=== PATIENT | female | born 1990 | race Caucasian/White ===

== ENCOUNTER 2020-06-09 15:50 | Emergency (ER) | payer SELFPAY ==
--- NOTE | ~2020-06-09 | XR_ITS ---
EXAMINATION: XR hand LT min 3V DATE: 06/09/2020 16:14 INDICATION: Pain and swelling at the fourth and fifth metacarpals after punching a board. TECHNIQUE: Posteroanterior, oblique and lateral views of the left hand were obtained. COMPARISON: None. FINDINGS: Oblique distal diaphyseal fracture of the left fifth metacarpal which is nondisplaced along its valentino r margin with 35 degree palmar/radial angulation. No other fractures identified. Alignment and joint spaces are normal throughout the remainder of the left hand. IMPRESSION: 1. 35 degrees palmar radial angulation of a distal diaphyseal boxer's fracture of the left fifth ca rpal. Reviewed, dictated and finalized at location . VERY MGR IMPRESSION: 1. 35 degrees palmar radial angulation of a distal diaphyseal boxer's fracture of the left fifth carpal.
[2020-06-09 15:52] VITALS: BP 141/92; PULSE 104; RESP 16; TEMP 36.3; O2SAT 98
[2020-06-09] MEDS: HYDROcodone/acetaminophen (*CRX) 7.5-325 MG TABLET 1 TAB PO (16:20)
--- NOTE | 2020-06-09 16:42 | ED.GENADULT ---
HPI - General Adult General Chief complaint: Extremity Injury, Upper Stated complaint: broke my hand Time Seen by Provider: 06/09/20 15:59 Source: patient and family Mode of arrival: ambulatory Limitations: no limitations History of Present Illness HPI narrative: Patient is a 29-year-old female who presents to emergency department for evaluation of left hand injury noting that she punched a board just prior to arrival trying to demonstrate that she could punch a board and split it in half patient presents with swelling and tenderness of the left hand worse with activity and movement Related Data Home Medications Medication Instructions Recorded Confirmed labetalol 06/09/20 lisinopril 06/09/20 06/09/20 Allergies Allergy/AdvReac Type Severity Reaction Status Date / Time No Known Allergies Allergy Verified 06/09/20 15:52 Review of Systems Review of Systems: All systems reviewed & are unremarkable except as noted in HPI and below PMFSH Social History Social History Gender identity (if verbalized by the patient): Female Exam Narrative: Exam Narrative: GENERAL: Well-appearing, well-nourished, and in no acute distress. HEAD: Normocephalic, atraumatic. EYES: PERRLA and EOMI. ENT: Nares clear, no rhinorrhea or epistaxis. Mucous membranes moist. EXTREMITIES: Bruising swelling tenderness over the left fourth and fifth MCP joints with tenderness along the fifth metacarpal SKIN: Warm, dry, no rash. NEURO: No focal deficits. Alert and oriented x3. Neurovascularly intact. Capillary refill less than 2 seconds PSYCH: Normal mood and affect. Course Course Emergency Course: Patient in the room in no distress aware of case findings treatment plan and diagnosis Consultations Consultation #1: Discussed case with hand surgery who will follow patient in clinic Date: 06/09/20 Time: 16:49 Vital Signs Vital signs: Vital Signs Temperature 97.3 F L 06/09/20 15:52 Pulse Rate 104 H 06/09/20 15:52 Respiratory Rate 16 06/09/20 15:52 Blood Pressure 141/92 H 06/09/20 15:52 Pulse Oximetry 98 06/09/20 15:52 Temperature 97.3 F L 06/09/20 15:52 Pulse Rate 104 H 06/09/20 15:52 Respiratory Rate 16 06/09/20 15:52 Blood Pressure 141/92 H 06/09/20 15:52 Pulse Oximetry 98 06/09/20 15:52 Medical Decision Making MDM Narrative Medical decision making narrative: Patients injury or pain is consistent with musculoskeletal etiology. No signs of neurological or vascular compromise on exam. Compartments and tisues are soft without signs of compartment syndrome. Pain is felt appropriate for further evaluation on an outpatient basis. Vital Signs Vital Signs: Vital Signs Temperature 97.3 F L 06/09/20 15:52 Pulse Rate 104 H 06/09/20 15:52 Respiratory Rate 16 06/09/20 15:52 Blood Pressure 141/92 H 06/09/20 15:52 Pulse Oximetry 98 06/09/20 15:52 Temperature 97.3 F L 06/09/20 15:52 Pulse Rate 104 H 06/09/20 15:52 Respiratory Rate 16 06/09/20 15:52 Blood Pressure 141/92 H 06/09/20 15:52 Pulse Oximetry 98 06/09/20 15:52 Discharge Plan Discharge Clinical Impression: Closed fracture of left hand Patient Disposition: Home, Self-Care Condition: Stable Instructions: Antibiotic Form, Hand Fracture (ED) Additional Instructions: Follow-up with hand surgery first thing on Saturday to set up for reevaluation Wear splint with rest ice and elevation Follow patient education sheets Return if symptoms worsen or concerns Prescriptions: No Action lisinopril 20 mg tablet RF: 0 labetalol 100 mg tablet RF: 0 Follow-up/Referrals: Horacio Terry MD [Physician] - Stand Alone Forms: Work/School Release IP
== END 2020-06-09 17:14 | disposition home or self-care (01) ==
PROVIDERS: Emergency Provider Emergency Medicine; PCP Emergency Medicine
DX: S62.397A Other fracture of fifth metacarpal bone, left hand, initial encounter for closed fracture (principal); W22.8XXA Striking against or struck by other objects, initial encounter
CPT/HCPCS: 29125; 73130; 99284; A4565; A9270

== ENCOUNTER 2020-06-18 01:13 | Outpatient (CLI) | payer BC, SELFPAY ==
[2020-06-18 18:32] LABS: SARS-CoV-2 RNA PCR Negative
== END 2020-06-18 01:14 | disposition home or self-care (01) ==
LOC: ANHCOVIDDT 01:13
PROVIDERS: PCP Emergency Medicine; Visit Provider Plastic Surgery
DX: Z01.812 Encounter for preprocedural laboratory examination (principal); Z20.828 Contact with and (suspected) exposure to other viral communicable diseases
CPT/HCPCS: 87635; C9803; U0003

== ENCOUNTER 2020-06-21 09:11 | Outpatient (CLI) | payer BC, SELFPAY ==
--- NOTE | 2020-06-21 09:12 | ECG_ITS ---
Measurements Intervals P[place]ps Rate: 81 P: 12 WY: 159 QRS: 72 QRSD: 102 T: 56 QT: 344 QTc: 400 Interpretive Statements SINUS RHYTHM NORMAL ECG Electronically Signed On 06-21-2020 9:27:26 ROPE MACHINE SETTER by Mj Reddy D.O.
== END 2020-06-21 09:12 | disposition home or self-care (01) ==
LOC: ANHSURGERY 09:12
PROVIDERS: PCP Nurse Practitioner Adult Health; Visit Provider Plastic Surgery
DX: I10 Essential (primary) hypertension (principal); Z01.818 Encounter for other preprocedural examination
CPT/HCPCS: 93005

== ENCOUNTER 2020-06-22 02:19 | Day surgery (SDC) | payer BC, SELFPAY ==
[2020-06-20 09:05] VITALS: BMI 30.2
--- NOTE | ~2020-06-22 | XR_ITS ---
EXAMINATION: XR surgery orthopedic DATE: 06/22/2020 16:40 INDICATION: ORIF left fifth metacarpal fracture TECHNIQUE: 3 fluoroscopic spot images of the left fifth metacarpal were obtained during procedure per formed by Dr. Terry. Radiologist was not present for the imaging or procedure. The amount of fluorosc opy time used during this procedure was 1.0 minutes. COMPARISON: 06/09/2020 FINDINGS: Interval reduction to near-anatomic alignment of the previous noted oblique fracture of the distal di aphysis of the left fifth metacarpal. There is less than one cortical width residual palmar displacem ent with negligible volar angulation. The fracture is fixed with an antegrade intramedullary pin whic h is anchored at the base of the metacarpal. No other fractures identified. Visualized joint spaces a re normal. IMPRESSION: 1. Near-anatomic alignment post open reduction and internal fixation of a distal diaphyseal fracture of the left fifth metacarpal. See procedure note for further detail. Reviewed, dictated and finalized at location A. RNAL CORROSION SPECIALIST IMPRESSION: 1. Near-anatomic alignment post open reduction and internal fixation of a dista l diaphyseal fracture of the left fifth metacarpal. See procedure note for furt her detail.
--- NOTE | 2020-06-22 07:27 | WPDHPUPDATE1 ---
History and Physical Update Update Date/Time: 06/22/20 07:27 History and Physical has been reviewed, including an updated exam of the patient. There are NO changes in the patient's condition. Risks, benefits, and alternatives have been discussed and questions answered. Patient agrees to proceed with procedure.
--- NOTE | 2020-06-22 07:29 | WPDHPUPDATE1 ---
History and Physical Update Update Date/Time: 06/22/20 07:29 History and Physical has been reviewed, including an updated exam of the patient. There are NO changes in the patient's condition. Risks, benefits, and alternatives have been discussed and questions answered. Patient agrees to proceed with procedure.
[2020-06-22 14:07] VITALS: BP 141/83; PULSE 82; RESP 14; TEMP 36.9; O2SAT 99
--- NOTE | 2020-06-22 14:29 | P.PNAN_ITS ---
Anes - Initial Pre Proc Eval Procedure: Operation Date: 06/22/20 14:15 Proposed Procedures p Open Reduction Internal Fixation Left Fifth Metacarpal - Horacio Terry MD Date/Time: 06/22/20 14:29 Surgeon: Horacio Terry MD Pre Op Diagnosis: Left Fifth Metacarpal Fracture Patient Data Age: 29 Gender: F Height: 5 ft 2 in Weight: 72.1 kg Allergies Allergy/AdvReac Type Severity Reaction Status Date / Time hydrocodone AdvReac Severe Nausea and Verified 06/22/20 14:08 Vomiting Home Medications Medication Instructions Recorded Confirmed Type labetalol 100 mg PO BID 06/09/20 06/22/20 History lisinopril 20 mg PO QAM 06/09/20 06/22/20 History tramadol 50 mg PO PRN PRN 06/20/20 06/22/20 History Patient hx anesthesia problems: none Family hx anesthesia problems: none PMFSH Past Medical History Medical History (Updated 06/22/20 @ 14:29 by Sergey Brito MD) HTN (hypertension) Overweight Surgical History Surgical History (Updated 06/22/20 @ 14:29 by Sergey Brito MD) H/O arthroscopic knee surgery Social History Social History Smoking status: Never smoker Living arrangements: with family Gender identity (if verbalized by the patient): Female Spiritual care concerns: No Anes - Eval Final PreProcedure Day of Procedure 06/22/20 14:29 Patient weight: overweight Heart: regular rate and rhythm Lungs: clear to auscultation Airway: Mallampati scale class II Neurological: alert and oriented Last oral intake: >/= 8 hours ASA classification: II Emergent: no Anesthetic plan: proceed Anesthesia type and monitoring: general LMA and standard monitoring Informed Consent: The patient's anesthetic plan and its attendant risks and bene fits were discussed with the patient/family/POA. Questions were solicited and answers provided to the satisfaction of the patient/family/POA.
[2020-06-22] MEDS: LACTATED RINGERS 1,000 ML 30 ML IV CONT (14:43)
[2020-06-22] MEDS: ceFAZolin 2 GM/D5W 50 ML 2 GM/50 ML BAG IVPB (15:44)
[2020-06-22] MEDS: LIDO 1%/EPINEPHRINE 1:100,000 20 ML VIAL 5 ML INFILTRATE (15:51)
[2020-06-22] MEDS: KETOROLAC 30 MG/ML VIAL (*BKC) IV PUSH (16:30)
--- NOTE | 2020-06-22 16:54 | PM.OP ---
Procedure Note - Brief Procedure Note - Brief Date of procedure: 06/23/20 Pre-op diagnosis: Left Fifth Metacarpal Fracture Post-op diagnosis: same Procedure performed: Closed reduction and fixation with BioMet IM davide. Anesthesia: GLMA Surgeon: Horacio Terry MD Ship Painter Helper: Elijah Estimated blood loss (mL): 1 Tourniquet time (min): 25 Drains: No Packing: No Pathology: none sent Complications: No immediate complications Condition: stable Disposition: same day
[2020-06-22 17:01] VITALS: BP 112/65; PULSE 85; RESP 16; O2SAT 100
[2020-06-22 17:31] VITALS: BP 132/77; PULSE 72; RESP 16; O2SAT 100
--- NOTE | 2020-06-22 19:49 | PM.PROC ---
Procedure Note - Detailed Date of procedure: 06/23/20 Pre-op diagnosis: Left Fifth Metacarpal Fracture Post-op diagnosis: same Procedure performed: Closed reduction and intramedullary davide fixation of the left 5th metacarpal angulated shaft fracture Description of procedure: The patient was greeted in the holding area. The bandage and splint were partially removed. The left 5th finger and ulnar forearm were marked with arrows indicating the appropriate location at the metacarpal. The patient agreed with this. She was taken to the operating room and placed supine on the operating table. A time-out was held and confirmed. She was given general endotracheal anesthesia. The extremity was prepped and draped in the usual fashion. The C-arm was brought in and we carefully examined this fracture. I was able to reduce the fracture manually. The fracture has a long oblique component but had a transverse portion that allowed the fracture to hold stability preventing shortening. At that point the plan for fixation was converted to utilization of the IM davide. The Biomet 1.1 mm intramedullary davide fixation set was brought to the table and the appropriate position at the metacarpal base was identified with C-arm. A small incision was made at that point. The introducer was applied to the dorsal cortex. The fenestration was made and the 1.1 mm pin was released into the medullary canal. Under fluoroscopic control the pin was advanced across the fracture line and was seated in satisfactory position. The davide was cut appropriately, bent and the sheath applied over that for stability. That was again cut and the plastic cap applied over the cut and to prevent skin trauma the skin was closed with interrupted 5 0 nylon suture. Passive flexion of the digit was confirmed. A soft bulky bandage was applied to the hand. The patient was awakened and transported to the recovery room in stable condition. Anesthesia: GETA Surgeon: Horacio Terry MD Perforating Machine Operator: Elijah Estimated blood loss (mL): 1 Tourniquet time (min): 25 Drains: No Packing: No Pathology: none sent Complications: No immediate complications Condition: stable Disposition: same day
== END 2020-06-22 18:09 | disposition home or self-care (01) ==
PROVIDERS: PCP Nurse Practitioner Adult Health; Visit Provider Plastic Surgery
PROC: (CPT 26608; principal; 2020-06-22 14:15)
DX: S62.327A Displaced fracture of shaft of fifth metacarpal bone, left hand, initial encounter for closed fracture (principal); W22.8XXA Striking against or struck by other objects, initial encounter; I10 Essential (primary) hypertension
CPT/HCPCS: 26608; A9270; C1713; J0690; J1885; J2250; J2405; J2704; J3010; J7120

== ENCOUNTER 2020-08-08 08:30 | Outpatient (RCR) | payer BC, SELFPAY ==
--- NOTE | 2020-07-08 10:09 | OTOPEVAL ---
OCCUPATIONAL THERAPY INITIAL EVALUATION REPORT 07/08/2020 Thank you for referring Katie Valentin to [facility] The patient is scheduled to be seen for occupational therapy? 1-2x/week for 5 weeks. Due to her 's work schedule she may not be able to attend 2x/week. Please review, sign, date and return this plan of care CONTRERAS. I agree with and certify that the following plan of care is medically necessary. Referring Physician Date Referring Provider: Horacio Terry MD *OT Outpatient Evaluation Therapy Assessment Status Assessment Status Assessment Status Evaluation Outpatient Past Medical History Neurological History Hx Neurological Disorders No Significant History Cardiovascular History Hx Hypertension Yes Hx Other Cardiac Disorders Yes: DENIES ANY CARDIAC SYMPTOMS Respiratory History Hx Respiratory Disorders No Significant History Gastrointestinal History Hx Gastrointestinal Disorders No Significant History Genitourinary History Hx Genitourinary Disorders No Significant History Musculoskeletal History Hx Orthopedic Surgery Yes: LT KNEE SCOPE Hx Other Musculoskeletal Disorders Yes: LT FIFTH METACARPAL FX Hematological History Hx Hematological Disorders No Significant History Endocrine History Hx Endocrine Disorders No Significant History HEENT History Hx Other HEENT Disorders Yes: WISDOM TEETH EXTRACTED Integumentary History Hx Skin Disorders No Significant History Reproductive History Hx Other Reproductive Disorders Yes: 2017 [facility] NO PERIOD SINCE Psychosocial History Hx Psychiatric Disorders No Significant History Pain History History of Any Previous or Ongoing No Significant History Instance of Pain Anesthesia History Hx Anesthesia Reactions No Significant History Evaluation Information Problem Diagnosis Displaced midshaft fx left 5th metacarpal s/p ORIF Additional Evaluation Detail 06/09/20 - Injury 06/22/20 - Intramedullary davide fixation 08/12/19 - MD follow up Prior Level of Function Activity Level (Last 3 Months) 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 Pain Score Pain Score
--- NOTE | 2020-08-08 10:02 | OTOPEVAL ---
OCCUPATIONAL THERAPY RE-EVALUATION REPORT 08/08/2020 Patient presents for OT evaluation after 5 weeks of therapy with gains in functional AROM of the wrist and fingers. She continues to have moderate stiffness in the small finger MCP joint which inhibits her ability to make a complete fist. A splint was fabricated today to provide a passive, prolonged stretch to the MCP. Patient to wear this 1-2x/day for no longer than 30 minutes. Otherwise she is independent with HEPs for AROM and PROM of the fingers. At this time no further skilled OT indicated as patient is independent and compliant with all materials. Plan to leave her care plan open x4 weeks to allow her to return for any splinting issues or if therapy is indicated, per MD, post surgical removal of the intramedullary davide. Thank you for referring Katie Valentin to [facility].? The patient is scheduled to be seen for therapy? 0-1x/week for 4 weeks as described above. Please review, sign, date and return this plan of care CONTRERAS. I agree with and certify that the following plan of care is medically necessary. Referring Physician Date Referring Provider: Horacio Terry MD *OT Outpatient Re-Evaluation Evaluation Information Problem Diagnosis Displaced midshaft fx left 5th metacarpal s/p ORIF Additional Evaluation Detail 06/09/20 - Injury 06/22/20 - Intramedullary davide fixation 08/12/19 - MD follow up Subjective Information Katie has participated in Query Text:As Reported By Patient/ outpatient OT x6 sessions for Family a stiff hand following 5th metacarpal fx. She reports marked improvement in her AROM noting improvements with making a fist. She does report continued stiffness in the MCP of digit V. She reports increased use of her left hand to use a spatula and being able to hold and use a drill. She states that her thumb, index, and middle fingers are normal . She also notes no longer having severe pain in the wrist. Pain Assessment Timing of Pain Assessment Timing of Pain Assessment Re-assessment Pain Scale Pain Scale Used Numeric (1 - 10) Self Report Pain Assessment Left Hand(s) Reported Pain Level 2 Pain Description Soreness Lowest Pain Intensity 0 Greatest Pain Intensity 6 Pain Score Additional Pain Score Comments Patient reports having the worst pain first thing in the morning, but this quickly subsides when she gets up and gets moving . Upper Extremity Range of Motion Wrist Range of Motion Left
--- NOTE | 2020-09-09 14:12 | OTOPEVAL ---
OCCUPATIONAL THERAPY DISCHARGE 09/09/20 Katie did not return for further treatment after fabrication of the MCP flexion static progressive orthotic, therefore she will be discharged from OT at this time. New orders were received to restart OT after her pin removal surgery. We are waiting for a call back from the patient to schedule. This discharge note is for her visits from 07/08/21 to 08/08/20. Please refer to most recent progress note from 08/08/20 for latest therapy update. Thank you for referring Katie Valentin to [facility]. Please review, sign, date and return this discharge CONTRERAS. I agree with and certify that the following plan of care is medically necessary. Referring Physician Date Referring Provider: Horacio Terry MD
== END 2020-09-12 08:05 | disposition home or self-care (01) ==
LOC: ANHOT 08:30
PROVIDERS: PCP Nurse Practitioner Adult Health; Referring Provider Plastic Surgery; Visit Provider Plastic Surgery
DX: Z47.89 Encounter for other orthopedic aftercare (principal); M79.89 Other specified soft tissue disorders; M25.642 Stiffness of left hand, not elsewhere classified
CPT/HCPCS: 97018; 97110; 97165; L3906

== ENCOUNTER 2020-08-22 00:27 | Outpatient (CLI) | payer BC, SELFPAY ==
[2020-08-22 17:34] LABS: SARS-CoV-2 RNA PCR Negative
== END 2020-08-22 00:28 | disposition home or self-care (01) ==
LOC: ANHCOVIDDT 00:27
PROVIDERS: PCP Nurse Practitioner Adult Health; Visit Provider Plastic Surgery
DX: Z01.812 Encounter for preprocedural laboratory examination (principal); Z20.822 Contact with and (suspected) exposure to COVID-19
CPT/HCPCS: C9803; U0003; U0005

== ENCOUNTER 2020-08-25 00:40 | Day surgery (SDC) | payer BC, SELFPAY ==
[2020-08-19 14:46] VITALS: BMI 29.0
[2020-08-25] VITALS (7 sets, daily range): BP systolic 118–136; BP diastolic 63–87; PULSE 72–93; RESP 15–20; TEMP 36.3–37.2; O2SAT 98–100
--- NOTE | ~2020-08-25 | XR_ITS ---
EXAMINATION: XR surgery orthopedic EXAM DATE: 08/25/2020 15:34 INDICATION: Removal of fixation davide left 5th metacarpal. TECHNIQUE: Fluoroscopy used during left 5th metatarsal surgery performed by Dr. Horacio Terry MD. The DAP for this procedure was 1.8 cGycm2. FINDINGS: 1st image demonstrates an intramedullary davide bridging left 5th metacarpal neck fracture. S ubsequent image demonstrates removal of this. Slight gap between the fracture fragments, difficult to identify any solid bone bridging on these limited portable fluoroscopic images. Correlate with proc edure note. IMPRESSION: Fluoroscopy used during removal of left 5th metatarsal fixation davide. Reviewed, dictated and finalized at location B. SERVICE OFFICER IMPRESSION: Fluoroscopy used during removal of left 5th metatarsal fixation davide .
--- NOTE | 2020-08-25 07:12 | WPDHPUPDATE1 ---
History and Physical Update Update Date/Time: 08/25/20 07:12 History and Physical has been reviewed, including an updated exam of the patient. There are NO changes in the patient's condition. Risks, benefits, and alternatives have been discussed and questions answered. Patient agrees to proceed with procedure.
[2020-08-25] MEDS: LACTATED RINGERS 1,000 ML 30 ML IV CONT (12:33)
--- NOTE | 2020-08-25 12:37 | SUR.PREOP ---
Discussed with patient that surgery is currently one hour behind. Voices understanding.
--- NOTE | 2020-08-25 13:23 | WPDANESEPPF ---
Anes - Initial Pre Proc Eval Procedure: Operation Date: 08/25/20 13:15 Proposed Procedures p Removal of Fixation Intramedullary Roscoe And Extensor Tenolysis Left Fifth Metacarpal - Horacio Terry MD Date/Time: 08/25/20 13:23 Surgeon: Horacio Terry MD Pre Op Diagnosis: Status Post Left Fifth Metacarpal Fracture Patient Data Age: 29 Gender: F Height: 5 ft 2 in Weight: 72.3 kg Last Vital Signs Temp 98.9 F 08/25/20 12:34 Pulse 82 08/25/20 12:34 Resp 16 08/25/20 12:34 BP 132/87 08/25/20 12:34 Pulse Ox 100 08/25/20 12:34 Allergies Allergy/AdvReac Type Severity Reaction Status Date / Time hydrocodone AdvReac Severe Nausea and Verified 08/25/20 11:34 Vomiting Home Medications Medication Instructions Recorded Confirmed Type labetalol 100 mg PO BID 06/09/20 08/25/20 History lisinopril 20 mg PO QAM 06/09/20 08/25/20 History Patient hx anesthesia problems: none Family hx anesthesia problems: none [facility] Past Medical History Medical History (Updated 06/22/20 @ 14:29 by Sergey Brito MD) HTN (hypertension) Overweight Surgical History Surgical History (Updated 06/22/20 @ 14:29 by Sergey Brito MD) H/O arthroscopic knee surgery Social History Social History Smoking status: Never smoker Second hand tobacco smoke exposure: No Alcohol intake: never Substance use: never Substance use type: does not use Living arrangements: with family Gender identity (if verbalized by the patient): Female Spiritual care concerns: No Anes - Eval Final PreProcedure Day of Procedure 08/25/20 13:23 Patient weight: overweight Heart: regular rate and rhythm Lungs: clear to auscultation Airway: Mallampati scale class II Neurological: alert and oriented Last oral intake: >/= 8 hours ASA classification: II Emergent: no Anesthetic plan: proceed Anesthesia type and monitoring: general LMA and standard monitoring Informed Consent: The patient's anesthetic plan and its attendant risks and benefits were discussed with the patient/family/POA. Questions were solicited and answers provided to the satisfaction of the patient/family/POA.
[2020-08-25] MEDS: LIDO 1%/EPINEPHRINE 1:100,000 50 ML VIAL INFILTRATE (14:45)
[2020-08-25] MEDS: fentaNYL CITRATE INJ (*CRX) 100 MCG/2 ML VIAL 25 MCG IV PUSH ×4 (15:56→16:07)
[2020-08-25] MEDS: ONDANSETRON INJ 4 MG/2 ML VIAL IV PUSH (16:29)
--- NOTE | 2020-08-25 16:50 | PM.OP ---
Procedure Note - Brief Procedure Note - Brief Date of procedure: 08/25/20 Pre-op diagnosis: Status Post Left Fifth Metacarpal Fracture Post-op diagnosis: other (Status post left 5th metacarpal fracture with internal fixtion and extensor tendon adhesions.) Procedure performed: Removal of internal fixation device from right 5th metacarpal and extensor tenolysis right. Description of procedure: The right hand was marked in the holding area. The patient was taken to the operating room placed supine on the operating table. A time-out was held and confirmed. The extremity was prepped and draped in usual fashion and she was given sedation anesthetic. The site was marked for incision and locally infiltrated with 1% lidocaine with epinephrine. The tourniquet was inflated to 250 mmHg. The incision was made over the pin site 1st and that was removed without difficulty. On C-arm images were made and these demonstrate a healed fracture with the dorsal defect estimated at approximately 50% of the diameter of the shaft. The extensor incision was extended from that point to the metacarpal head and just across the joint. Skin flaps were elevated the extensor tendons were identified the digit minimi as well as the extensor communis. These were from surrounding tissue. Part of the extensor malin was lysed on the ulnar aspect. The joint capsule was incised and with that maneuver we were able to flex the metacarpophalangeal joint to 90?. In this process the extensor minimi was disrupted at its insertion. This was repaired in a Pulvertaft fashion with 4-0 Prolene sutures in multiple sites. images were made ing flexion and extension. A bulky bandage was applied and she was discharged in stable condition. She has been prescribed Percocet 5/325 for pain # 14. Surgeon: Horacio Terry MD
[2020-08-25] MEDS: SCOPOLAMINE 1.5 MG PATCH TRANSDERM (17:03)
[2020-08-25] MEDS: diphenhydrAMINE HCl INJ 50 MG/ML VIAL 12.5 MG IV PUSH (17:03)
== END 2020-08-25 17:35 | disposition home or self-care (01) ==
PROVIDERS: PCP Nurse Practitioner Adult Health; Visit Provider Plastic Surgery
PROC: (CPT 20694; principal; 2020-08-25 13:15)
DX: Z47.2 Encounter for removal of internal fixation device (principal); S62.327D Displaced fracture of shaft of fifth metacarpal bone, left hand, subsequent encounter for fracture with routine healing; M67.844 Other specified disorders of tendon, left hand; I10 Essential (primary) hypertension
CPT/HCPCS: 20680; 26445; 26525; A9270; J1100; J1200; J2250; J2405; J2704; J3010; J7120

== ENCOUNTER 2021-08-04 11:00 | Outpatient (RCR) | payer BC, SELFPAY ==
--- NOTE | 2021-05-30 11:41 | OTOPEVAL ---
OCCUPATIONAL THERAPY INITIAL EVALUATION REPORT 05/30/21 Thank you for referring Katie Valentin to [facility].? The patient is scheduled to be seen for therapy?1-2x/week for 3 weeks. Please review, sign, date and return this plan of care CONTRERAS. I agree with and certify that the following plan of care is medically necessary. Referring Physician Date Referring Provider: Horacio Lundberg, *OT Outpatient Evaluation Start: 05/30/21 10:46 Outpatient Past Medical History Neurological History Hx Neurological Disorders No Significant History Cardiovascular History Hx Hypertension Yes Hx Other Cardiac Disorders Yes: DENIES ANY CARDIAC SYMPTOMS Respiratory History Hx Respiratory Disorders No Significant History Gastrointestinal History Hx Gastrointestinal Disorders No Significant History Genitourinary History Hx Genitourinary Disorders No Significant History Musculoskeletal History Hx Orthopedic Surgery Yes: LT KNEE SCOPE Hx Other Musculoskeletal Disorders Yes: LT FIFTH METACARPAL FX Hematological History Hx Hematological Disorders No Significant History Endocrine History Hx Endocrine Disorders No Significant History HEENT History Hx Other HEENT Disorders Yes: WISDOM TEETH EXTRACTED Integumentary History Hx Skin Disorders No Significant History Reproductive History Hx Other Reproductive Disorders Yes: [address] [facility] [address] STATES NO PERIOD SINCE Psychosocial History Hx Psychiatric Disorders No Significant History Pain History History of Any Previous or Ongoing No Significant History Instance of Pain Anesthesia History Hx Anesthesia Reactions No Significant History Evaluation Information Problem Diagnosis Left hand, 5th digit, extensor tenolysis Onset 05/24/21 Additional Evaluation Detail Entire history: 06/09/20 Displaced midshaft fx left 5th metacarpal 06/22/20 IM davide fixation 08/25/20 IM davide removal and first extensor tenolysis surgery 05/24/21 Second tenolysis surgery Subjective Information Patient states that since her Query Text:As Reported By Patient/ injury, almost a year ago, she Family has gotten used to not using the pinky finger for ADLs and household tasks. She reports that since her recent surgery she is now able to incorporate the finger when using that hand. She notes improved flexibility of the MCP joint. Prior Level of Function Activity Level (Last 3 Months) Nicole Daniels
--- NOTE | 2021-06-22 11:46 | OTOPEVAL ---
OCCUPATIONAL THERAPY RE-EVALUATION REPORT 06/22/21 Patient presents today for OT re-evaluation following 3 weeks of therapy. Improvements noted with active and passive ROM in the small finger. 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 Continued skilled OT indicated for progressive strengthening, modalities, and manual therapy to facilitate optimal functional use of her left, dominant hand. Thank you for referring Katie Valentin to [facility].? The patient is scheduled to be seen for therapy? 2x/week for 3 weeks. Please review, sign, date and return this plan of care CONTRERAS. I agree with and certify that the following plan of care is medically necessary. Referring Physician Date Referring Provider: Horacio Lundberg, *OT Outpatient Re-Evaluation Diagnosis Left hand, 5th digit, extensor tenolysis Onset 05/24/21 Additional Evaluation Detail Entire history: 06/09/20 Displaced midshaft fx left 5th metacarpal 06/22/20 IM davide fixation 08/25/20 IM davide removal and first extensor tenolysis surgery 05/24/21 Second tenolysis surgery Subjective Information Patient reports improvements Query Text:As Reported By Patient/ in her flexibility into MCP Family flexion. She does note improved active adduction strength also. She states she is now able to incorporate that pinky more during gripping and carrying tasks. HEP includes dynamic splinting for MCP flexion. Satic night splint for PIP extension. Active/passive ROM. Strengthening with putty. She is very compliant with HEP. Pain Assessment Timing of Pain Assessment Timing of Pain Assessment Re-assessment Pain Scale Pain Scale Used Numeric (1 - 10) Self Report Pain Assessment Left Hand(s) Reported Pain Level 0 Lowest Pain Intensity 0 Greatest Pain Intensity 7 Pain Score Pain Score 0: Self Report Additional Pain Score Comments Pain is localized to the 5th MCP. States she has the most pain with her dynamic splint to stretch the MCP into flexion. Upper Extremity Range of Motion Wrist Range of Motion Left Wrist Flexion - Active 70 Wrist Extension - Active 70
--- NOTE | 2021-07-12 14:28 | OTOPEVAL ---
OCCUPATIONAL THERAPY RE-EVALUATION REPORT 07/12/21 Patient presents for 2nd OT re-evaluation today. She has completed 6 weeks total of therapy. 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 in the last 3 weeks. She continues to be very compliant with all materials. Continued skilled OT indicated for modalities, scar mgmt, and strengthening to facilitate optimal functional use of her left hand. Thank you for referring Katie Valentin to [facility].? The patient is scheduled to be seen for therapy? 1-2x/week for 3 weeks. Please review, sign, date and return this plan of care CONTRERAS. I agree with and certify that the following plan of care is medically necessary. 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 HEP includes dynamic splinting for MCP flexion. Satic night splint for PIP extension. Active/passive ROM. Strengthening with putty. She is very compliant with HEP. Pain Assessment Timing of Pain Assessment Timing of Pain Assessment Re-assessment Pain Scale Pain Scale Used Numeric (1 - 10) Self Report Pain Assessment Left Hand(s) Reported Pain Level 0 Pain Description Soreness Pain Score Pain Score 0: Self Report Upper Extremity Range of Motion Finger Range of Motion Left [place] MCP Joint Flexion - Active 65 [place] MCP Joint Flexion - 85 Passive [place] MCP Joint Extension - -10 Active [place] MCP Joint Extension - 0 Passive [place] PIP Joint Flexion - Active 95 [place] PIP Joint Extension - -20 Active [place] PIP Joint Extension - 0 Passive Little Fin
--- NOTE | 2021-07-17 12:47 | PCOTNOTE ---
Patient did not show up for scheduled appointment this date. Called patient who thought her appointment was at 1:30. Had an opening at 2:30 tomorrow and we rescheduled today's appt for tomorrow.
--- NOTE | 2021-08-04 11:27 | OTOPEVAL ---
OCCUPATIONAL THERAPY RE-EVALUATION AND DISCHARGE SUMMARY 08/04/21 Patient presents for 3rd OT re-evaluation today. She has completed 9 weeks total of therapy. ROM and strength of the left hand/small finger has improved to functional limits. She has made excellent progress with MCP flexion and continues to demonstrate improved scar tissue mobility. Discharging today with HEP. Thank you for referring Katie Valentin to [facility].?Please review, sign, date and return this D/C Note CONTRERAS. I agree with and certify that the following plan of care is medically necessary. Referring Physician Date Referring Provider: Horacio Lundberg, *OT Outpatient Evaluation Start: 05/30/21 10:46 Evaluation Information Problem Diagnosis Left hand, 5th digit, extensor tenolysis Onset 05/24/21 Additional Evaluation Detail Entire history: 06/09/20 Displaced midshaft fx left 5th metacarpal 06/22/20 IM davide fixation 08/25/20 IM davide removal and first extensor tenolysis surgery 05/24/21 Second tenolysis surgery Subjective Information Patient reports continued Query Text:As Reported By Patient/ improvements in her hand ROM. Family She states that this week she made the best fist she's made since the injury. She reports no functional limitations. She is very compliant with all home exercises. HEP includes dynamic splinting for MCP flexion. Static night splint for PIP extension. Active/passive ROM. Strengthening with putty. Pain Assessment Timing of Pain Assessment Timing of Pain Assessment Assessment Pain Scale Pain Scale Used Numeric (1 - 10) Self Report Pain Assessment Left Hand(s) Reported Pain Level 3 Lowest Pain Intensity 0 Pain Score Pain Score 3: Self Report Interventions Used Interventions Used By Clinicians Ultrasound Upper Extremity Range of Motion Finger Range of Motion Left [place] MCP Joint Flexion - Active 75 [place] MCP Joint Flexion - 90 Passive [place] MCP Joint Extension - -10 Active [place] MCP Joint Extension - 0 Passive [place] PIP Joint Flexion - Active 95 [place] PIP Joint Extension - -20 Active [place] PIP Joint Extension - 0 Passive
== END 2021-08-07 08:54 | disposition home or self-care (01) ==
LOC: ANHOT 11:00
PROVIDERS: PCP Nurse Practitioner Adult Health; Visit Provider Orthopaedic Surgery Hand Surgery
DX: Z48.89 Encounter for other specified surgical aftercare (principal)
CPT/HCPCS: 97018; 97035; 97110; 97140; 97165; 97763; L3933

== ENCOUNTER 2022-01-03 18:08 | Emergency (ER) | payer BC, SELFPAY ==
--- NOTE | ~2022-01-03 | XR_ITS ---
EXAMINATION: XR chest 2V Exam Date/Time: 01/03/2022 18:50 CDT HISTORY: chest tightness, cough x 3 weeks, COVID+ 3 weeks ago Comparison: None available. RESULT: Lines, tubes, and devices: None. Lungs and pleura: Clear. Cardiomediastinal silhouette: Normal cardiomediastinal silhouette. Other: No acute osseous or upper abdominal finding. IMPRESSION: No acute cardiopulmonary process. Reviewed, dictated and finalized at location K.
[2022-01-03 18:12] VITALS: BP 117/92; PULSE 100; RESP 18; TEMP 36.9; O2SAT 98
--- NOTE | 2022-01-03 18:25 | ECG_ITS ---
Measurements Intervals [place] Rate: 97 P: -3 RI: 139 QRS: 64 QRSD: 94 T: 33 QT: 320 QTc: 407 Interpretive Statements SINUS RHYTHM COMPARED TO ECG 06/21/2020 09:46:22 NO SIGNIFICANT CHANGES Electronically Signed On 01-04-2022 7:37:50 CDT by Fabricio Rod MD
--- NOTE | 2022-01-03 18:31 | ED.URI ---
HPI - URI/Sore Throat General Chief Complaint: Upper Respiratory Infection Stated Complaint: Reevaluation for Upper Respiratory Infection Time Seen by Provider: 01/03/22 18:15 History of Present Illness HPI Narrative: Patient is a 31-year-old female here because of positive for COVID 3 weeks ago who presents today for continued upper respiratory infection type symptoms. Patient states that her symptoms began with a cough and congestion about 3 weeks ago. Her symptoms have worsened over the course of the past 3 weeks, and she notes multiple episodes of posttussive emesis and feeling short of breath due to her cough. She additionally developed a tightness in the center of her chest over the past 3 days that has been relatively constant. Pain is not worse with deep breath or with cough. Patient was evaluated in urgent care facility and was given albuterol, Tessalon Perles, and prednisone without any relief of her symptoms. Denies hemoptysis, leg swelling, estrogen use, history of smoking. Related Data Home Medications Medication Instructions Recorded Confirmed labetalol 100 mg tablet 100 mg PO BID 06/09/20 08/25/20 lisinopril 20 mg tablet 20 mg PO QAM 06/09/20 08/25/20 Allergies Allergy/AdvReac Type Severity Reaction Status Date / Time hydrocodone AdvReac Severe Nausea and Verified 08/25/20 11:34 Vomiting Review of Systems Review of Systems: Gen: Denies fevers or chills Eyes: Denies eye pain or visual change ENT: Reports congestion Respiratory: Reports cough and shortness of breath CV: Reports chest pain. GI: Denies abdominal pain nausea, emesis or diarrhea : denies burning, urgency, frequency or hematuria Musculoskeletal: Denies back pain or muscle pain Neuro: Denies numbness, tingling, weakness or focal weakness Skin: Denies rash Except as documented, all other systems reviewed and negative PMFSH Past Medical History Medical History HTN (hypertension) Overweight Surgical History Surgical History H/O arthroscopic knee surgery Social History Social History Smoking status: Never smoker Second hand tobacco smoke exposure: No Alcohol intake: never Substance use: never Substance use type: does not use Gender identity (if verbalized by the patient): Female Spiritual care concerns: No Exam Narrative: APPEARANCE: Uncomfortable appearing, coughing throughout exam. EYES: EOMI HEENT: Normocephalic, atraumatic, OMM. Posterior oropharynx is clear. RESPIRATORY: No respiratory distress. Clear to auscultation bilaterally with no rhonchi wheezing or rales. CARDIOVASCULAR: Regular rate and rhythm without murmurs rubs or gallops. ABDOMINAL: Soft, nontender, nondistended, no rebound or guarding MUSCULOSKELETAL: Moves all extremities. No clubbing, cyanosis or edema. No calf tenderness bilaterally. NEURO: Awake and alert. Following commands, speech normal, no focal deficits SKIN: Warm, dry. No rashes lesions or abrasions PSYCHIATRIC: Normal affect/mood Course Vital Signs Vital signs: Vital Signs Temperature 98.5 F 01/03/22 18:12 Pulse Rate 100 01/03/22 18:12 Respiratory Rate 18 01/03/22 18:12 Blood Pressure 117/92 H 01/03/22 18:12 Pulse Oximetry 98 01/03/22 18:12 Oxygen Delivery Room Air 01/03/22 18:12 Temperature 98.5 F 01/03/22 18:12 Pulse Rate 100 01/03/22 18:12 Respiratory Rate 18 01/03/22 18:12 Blood Pressure 117/92 H 01/03/22 18:12 Pulse Oximetry 99 01/03/22 19:51 Oxygen Delivery Room Air 01/03/22 18:12 MDM - URI/Sore Throat MDM Narrative Medical decision making narrative: 30-year-old female here for evaluation of upper respiratory symptoms for the past 3 weeks after being diagnosed with COVID, including non-productive cough, congestion and chest pain. Patient's rita
[2022-01-03 18:46] LABS: Basophils Percent Auto 0.3 % (0.2-1.2); Eosinophils Percent Auto 0.1 % (0-4.4); Hematocrit 37.1 % (37.0-47.0); Hemoglobin 12.4 g/dL (12.0-15.0); Immature Granulocyte Absolute 0.04 K/mm3 (0.00-0.031); Immature Granulocyte Percent A 0.4 % (0-0.5); Lymphocytes Absolute Auto 1.81 K/mm3 (0.9-3.2); Lymphocytes Percent Auto 19.3 % (18.3-44.2); Mean Corpuscular HGB Conc 33.4 g/dl (32-36); Mean Corpuscular Hemoglobin 30.5 pg (26-34); Mean Corpuscular Volume 91.4 fl (80-100); Mean Platelet Volume 10.4 fl (7.4-10.4); Monocytes Absolute Auto 0.6 K/mm3 (0.1-0.6); Monocytes Percent Auto 6.5 % (2.6-8.5); Neutrophils Absolute Auto 6.9 K/mm3 (1.3-6.7); Neutrophils Percent Auto 73.4 % (45.5-73.1); Platelet Count Result 267 k/mm3 (150-375); Red Blood Count 4.06 M/mm3 (4.2-5.4); Red Cell Distribution Width 12.1 % (11.5-14.5); White Blood Count 9.4 K/mm3 (4.5-10.0)
--- NOTE | 2022-01-03 18:48 | PC.NURSE ---
pt to xray via w/c
--- NOTE | 2022-01-03 18:53 | PC.NURSE ---
Pt returned from xray
[2022-01-03 19:00] LABS: Alanine Aminotransferase 32 U/L (6-35); Albumin Level 4.8 g/dL (3.5-5.1); Alkaline Phosphatase 99 U/L (38-126); Anion Gap 7 mmol/L (8-16); Aspartate Amino Transferase 43 U/L (14-36); Bilirubin,Total 0.4 mg/dL (0.2-1.3); Blood Urea Nitrogen 11 mg/dL (7-17); Calcium 9.1 mg/dL (8.4-10.2); Carbon Dioxide 24 mmol/L (22-30); Chloride 108 mmol/L (98-107); Estimated CRCL calculation 95 ml/min; Estimated Glomerular Filt Rate > 60; Glucose 125 mg/dL (65-110); Potassium 4.2 mmol/L (3.4-5.0); Sodium 139 mmol/L (137-145)
[2022-01-03 19:11] LABS: Troponin I < 0.012 ng/mL (0.000-0.034)
[2022-01-03] MEDS: guaiFENesin/DEXTROMETHORPHAN 10 ML UDC PO (19:49)
[2022-01-03 19:51] VITALS: O2SAT 99
== END 2022-01-03 19:51 | disposition home or self-care (01) ==
PROVIDERS: Physician Assistant; Emergency Provider Emergency Medicine; PCP Nurse Practitioner Adult Health
DX: J06.9 Acute upper respiratory infection, unspecified (principal); I10 Essential (primary) hypertension
CPT/HCPCS: 36415; 71046; 80053; 84484; 85025; 93005; 99284; A9270

== ENCOUNTER 2022-07-02 02:07 | Day surgery (SDC) | payer BC, SELFPAY ==
[2022-06-19 09:37] VITALS: BMI 31.1
--- NOTE | 2022-06-19 09:48 | PC.NURSE ---
Report to the Outpatient Waiting Room, entrance under the green pavilion located off [facility], at time 0845 on date 07/02/22. Planned Procedure Time: 1045. Time changes happen often and if your time is changed the preop area will call you the afternoon before. - You and your visitor will be asked to self-screen and do not enter if you have any COVID symptoms. - Only one visitor is requested with a max of two and NO children visitors are allowed at this time. - The patient visitor may be requested to leave or wait in car when not with patient due to distancing restrictions. - A mask is optional within the hospital. Patients may have clear liquids (water, carbonated beverages, clear teas, apple juice) until 3 hours prior to surgery with a maximum of 20 ounces. - No food from midnight until time of surgery Take the following medications with a SIP of water the morning of surgery: LABETALOL Medications to discontinue per physician _N/A Date to take last dose_n/a Please no make-up, nail tajik, hairspray, perfume, deodorant, or body powder the day of surgery. No jewelry (including any body piercings) or valuables the day of surgery, leave them at home. Please take a shower or bath the night before, or the morning of, surgery with an antibacterial soap. Wear comfortable, loose fitting clothing. - Jewelry must be removed prior to entering the operating room. Rings and piercings that are not removed may be cut off. - The hospital will not accept responsibility for valuables. - Please leave all valuables, including medications, at home the day of surgery. If you are going home after surgery, a licensed helper/driver must drive you home. - NO public transportation without another adult if you receive anesthesia. - We recommend that an adult stay with you for 24 hours following discharge. - We also recommend that you do not drive, make important decision, drink alcoholic beverages, or take any drugs that were not prescribed by your health care provider for at least 24 hours after your discharge time. Follow any additional instructions given to you from your surgeon. If you or anyone in your household have experienced Covid symptoms in the past week, please notify your surgeon or the nurse liaison at the phone number below for possible testing. Telephone instructions given to patient and asked if any additional questions and then verbalized understanding. Patient advised to call surgeon office or pre surgery nurse liaison [phone] if any additional questions.
[2022-07-02] VITALS (11 sets, daily range): BP systolic 93–137; BP diastolic 45–88; PULSE 61–95; RESP 12–20; TEMP 36.6–36.9; O2SAT 93–100
--- NOTE | 2022-07-02 08:18 | P.HP_ITS ---
History of Present Illness History of Present Illness Consent: Risks, benefits, and alternatives have been discussed and questions answered. Patient agrees to proceed with procedure. Chief complaint: sterilization Narrative: Katie Valentin is a 31 year old female who has completed her childbearing and wishes to proceed with laparoscopic sterilization. Options were discussed and patient has chosen to proceed with tubal ligation. Risks of infection, bleeding, and injury to internal organs is reviewed. The permanent, irreversible nature of a tubal ligation was reviewed as well as tubal failure with increased risk of ectopic . Patient voices understanding and agrees to proceed. Review of Systems Review of Systems: not repeated day of surgery; patient states no changes in status PMFSH Past Medical History Medical History (Updated 07/02/22 @ 08:23 by Candace Llanos MD) Hearing loss History of spontaneous HTN (hypertension) (normal spontaneous vaginal delivery) x4 Overweight Surgical History Surgical History (Updated 07/02/22 @ 08:22 by Candace Llanos MD) H/O arthroscopic knee surgery History of D&C 04/2009 miscarriage Social History Social History Smoking status: Never smoker Second hand tobacco smoke exposure: No Alcohol intake: current Alcohol use details: on special occasions Substance use: never Living arrangements: with family Gender identity (if verbalized by the patient): Female Spiritual care concerns: No Meds Home Medications and Allergies Home Medications Medication Instructions Recorded Confirmed Type labetalol 100 mg tablet 100 mg PO BID 06/09/20 06/19/22 History lisinopril 20 mg tablet 20 mg PO QAM 06/09/20 06/19/22 History Allergies Allergy/AdvReac Type Severity Reaction Status Date / Time hydrocodone AdvReac Severe Nausea and Verified 06/19/22 09:34 Vomiting Exam Const: General: healthy appearing and alert Orientation/consciousness: patient oriented x3 Resp: Effort & Inspection: normal respiratory effort GI: GI Palp: Yes Soft to palpation, No Tenderness to palpation present (GI) and No Palpable mass present : External Female Exam: normal external appearance Speculum Exam - V agina: normal appearance of the vagina and normal vaginal discharge Speculum Exam - Cervix: normal appearance of the cervix Bimanual exam- vagina & uterus: uterine size normal and consistency normal Bimanual Exam- Adnexa, other: normal adnexae and No adnexal tenderness Neuro: General: patient oriented x3 Assessment and Plan Assessment and plan (1) Encounter for sterilization: Code(s): Z30.2 - Encounter for sterilization Status: Acute Assessment and Plan: plan is to proceed with laparoscopic bilateral tubal ligation with Falope rings
--- NOTE | 2022-07-02 08:18 | WPDHPUPDATE1 ---
History and Physical Update Update Date/Time: 07/02/22 08:18 History and Physical has been reviewed, including an updated exam of the patient. There are NO changes in the patient's condition. Risks, benefits, and alternatives have been discussed and questions answered. Patient agrees to proceed with procedure.
--- NOTE | 2022-07-02 08:28 | P.PNAN_ITS ---
Anes - Initial Pre Proc Eval Procedure: Operation Date: 07/02/22 11:15 Proposed Procedures p Bilateral Laparoscopic Tubal Ligation - Candace Llanos MD Date/Time: 07/02/22 08:28 Surgeon: Candace Llanos MD Pre Op Diagnosis: sterilization Patient Data Age: 31 Gender: F Height: 1.57 m Weight: 77.11 kg Allergies Allergy/AdvReac Type Severity Reaction Status Date / Time hydrocodone AdvReac Severe Nausea and Verified 07/02/22 09:42 Vomiting Home Medications Medication Instructions Recorded Confirmed Type labetalol 100 mg tablet 100 mg PO BID 06/09/20 07/02/22 History lisinopril 20 mg tablet 20 mg PO QAM 06/09/20 07/02/22 History Patient hx anesthesia problems: none Family hx anesthesia problems: none Results Review: All pre-operative results and documents have been reviewed as part of the pre- operative evaluation. PMFSH Past Medical History Medical History (Updated 07/02/22 @ 08:29 by Reuben Roldan MD) Hearing loss History of spontaneous HTN (hypertension) (normal spontaneous vaginal delivery) x4 Obesity Surgical History Surgical History (Updated 07/02/22 @ 08:22 by Candace Llanos MD) H/O arthroscopic knee surgery History of D&C 04/2009 miscarriage Social History Social History Smoking status: Never smoker Second hand tobacco smoke exposure: No Alcohol intake: current Alcohol use details: on special occasions Substance use: never Living arrangements: with family Gender identity (if verbalized by the patient): Female Spiritual care concerns: No Anes - Eval Final PreProcedure Day of Procedure 07/02/22 08:28 Patient weight: obese Heart: regular rate and rhythm Lungs: clear to auscultation Airway: Mallampati scale class II Neurological: alert and oriented Last oral intake: >/= 8 hours ASA classification: II Emergent: no Anesthetic plan: proceed Anesthesia type and monitoring: general ETT and standard monitoring Results Review: All pre-operative results and documents have been reviewed as part of the pre- operative evaluation. Informed Consent: The patient's anesthetic plan and its attendant risks and benefits were discussed with the patient/family/POA. Questions were solicited and answers provided to the satisfaction of the patient/family/POA.
[2022-07-02] MEDS: LACTATED RINGERS 1,000 ML 30 ML IV CONT ×3 (09:37→14:37)
[2022-07-02] MEDS: KETOROLAC 15 MG/ML VIAL (*BKC) IV PUSH (09:37)
[2022-07-02] MEDS: ACETAMINOPHEN 500 MG TABLET 1000 MG PO (09:38)
--- NOTE | 2022-07-02 12:07 | P.OP_ITS ---
Procedure Note - Detailed Date of Procedure 07/02/22 Pre-op Diagnosis sterilization Post-op Diagnosis Same Procedure Performed Laparoscopic tubal ligation with Falope ring Surgeon Candace Llanos MD Anesthesia General Findings normal-appearing tubes, ovaries, uterus Description of Procedure The patient is taken to the operating room and placed under anesthesia in the dorsal lithotomy position. She was prepped and draped in usual sterile fashion. The bladder was drained with a red rubber catheter. [place] speculum was placed in the vagina and the cervix grasped on the anterior lip with a tenacula. The acorn manipulator was placed and the speculum removed. The attention was turned to the abdomen. A vertical skin incision was made at the base of the umbilicus. The abdomen is tented and the Veress needle placed. The water drop test is normal and opening patient pressure was 7mmHg. Patient pressure was obtained to a patient pressure of 15mmHg. The Veress needle was removed and the 5mm Optiview was placed. Intra-abdominal placement was confirmed with the laparoscope. The patient is placed in Trendelenburg position and a horizontal skin incision was made 2cm above the symphysis pubis in the midline. The 8mm trocars placed under direct visualization. The blunt probe was used to bring the tubes into view. The ring applicator was used to grasp the left tube which was grasped in a thin portion and a good loop of tube brought up into the applicator and the ring was applied. The identical procedure was performed on the opposite side. All instruments are removed and the pneumoperitoneum was reduced. The skin incisions were closed using 4-0 nylon in an interrupted fashion. Bandages were placed over the incisions. Vaginal instruments are removed. The patient was awakened from anesthesia and taken to recovery in stable condition. Sponge, needle, and instrument counts are correct per the OR staff. Estimated Blood Loss 5 Drains No Packing No Pathology None sent Complications No immediate complications Condition Stable
[2022-07-02] MEDS: fentaNYL CITRATE INJ (*CRX) 100 MCG/2 ML VIAL 25 MCG IV PUSH ×12 (12:19→13:12)
[2022-07-02] MEDS: HYDROmorphone HCL INJ (*CRX) 1 MG/ML SYR 0.5 MG IV PUSH ×4 (12:39→12:59)
[2022-07-02] MEDS: ONDANSETRON INJ 4 MG/2 ML VIAL IV PUSH (13:32)
[2022-07-02] MEDS: SCOPOLAMINE 1.5 MG PATCH TRANSDERM (14:09)
[2022-07-02] MEDS: HALOPERIDOL LACTATE 5 MG/ML VIAL 1 MG IV PUSH (14:24)
== END 2022-07-02 15:55 | disposition home or self-care (01) ==
PROVIDERS: PCP Nurse Practitioner Adult Health; Visit Provider Obstetrics & Gynecology Gynecology
PROC: (CPT 58671; principal; 2022-07-02 11:15)
DX: Z30.2 Encounter for sterilization (principal); I10 Essential (primary) hypertension; E66.9 Obesity, unspecified; Z68.30 Body mass index [BMI] 30.0-30.9, adult
CPT/HCPCS: 58671; A4264; A9270; J1100; J1170; J1630; J1885; J2250; J2405; J2704; J2710; J3010; J7120

== ENCOUNTER 2022-09-08 08:10 | Emergency (ER) | payer BC, SELFPAY ==
[2022-09-08 08:22] VITALS: BP 128/82; PULSE 86; RESP 16; TEMP 36.7; O2SAT 100
--- NOTE | 2022-09-08 08:49 | ED.BACK ---
HPI - Back Pain/Injury General Chief Complaint: Back Pain/Injury Stated Complaint: lower back pain Time Seen by Provider: 09/08/22 08:43 Source: patient Mode of arrival: ambulatory Limitations: no limitations History of Present Illness HPI Narrative: Patient presents today complaining of bilateral mid back pain x6 days, right greater than left. Denies injury or trauma. Denies urinary symptoms, shortness of breath, chest pain, nausea vomiting, fever, numbness or tingling in the extremities. She has tried azo, icy Hot without relief. She currently rates her pain 10/29. Related Data Home Medications Medication Instructions Recorded Confirmed labetalol 100 mg tablet 100 mg PO BID 06/09/20 09/08/22 lisinopril 20 mg tablet 20 mg PO QAM 06/09/20 09/08/22 Allergies Allergy/AdvReac Type Severity Reaction Status Date / Time hydrocodone AdvReac Severe Nausea and Verified 09/08/22 08:31 Vomiting Review of Systems Review of Systems: CONSTITUTIONAL: Denies body aches, fever, chills, or sweats. EYES: Denies visual changes, redness, or discharge. ENT: Denies rhinorrhea, congestion, sore throat, or otalgia. CARDIOVASCULAR: Denies chest pain, palpitations, or edema. RESPIRATORY: Denies cough or dyspnea. GASTROINTESTINAL: Denies abdominal pain, nausea, vomiting, or diarrhea. GENITOURINARY: Denies dysuria or hematuria. SKIN: Denies rash, itching, or wounds. MUSCULOSKELETAL: Denies joint pain, or myalgia.+ back pain NEUROLOGIC: Denies headache, numbness, tingling, or weakness. PSYCH: Denies depression or anxiety. [facility] Past Medical History Medical History Hearing loss History of spontaneous HTN (hypertension) (normal spontaneous vaginal delivery) x4 Obesity Surgical History Surgical History H/O arthroscopic knee surgery History of D&C 04/2009 miscarriage Social History Social History Smoking status: Never smoker Second hand tobacco smoke exposure: No Alcohol intake: current Alcohol use details: on special occasions Substance use: never Living arrangements: with family Gender identity (if verbalized by the patient): Female Spiritual care concerns: No Comments At time of signature, I have reviewed and agree with nursing past medical, surgical, social and family history unless otherwise noted. Please see nursing chart for further information. There is no relevant family history pertinent to the presenting complaint Exam Narrative: GENERAL: Well-appearing, well-nourished, and in no acute distress. HEAD: Normocephalic, atraumatic. EYES: EOMI. No redness or drainage. Conjunctivae normal. ENT: Mucous membranes pink and moist. NECK: Normal AROM. CHEST: No respiratory distress. Clear to auscultation. HEART: Regular rate and rhythm. No murmur appreciated. Normal peripheral pulses. ABDOMEN: Soft, nontender, nondistended, normal active bowel sounds. + very mild CVAT, right greater than left MUSCULOSKELETAL: No bony tenderness of the spine. No paraspinal muscle tenderness. Patient localizes pain to the bilateral upper lumbar/lower thoracic paraspinal muscles. 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 Distal sensation intact. Capillary refill normal. Radial pulses normal. EXTREMITIES: Normal range of motion. No edema. SKIN: Warm, dry, no rash. Capillary refill normal. Normal skin turgor. NEURO: No focal deficits. Alert and oriented x3. Gait steady. PSYCH: Normal affect. No signs of depression or anxiety. Course Course Level of Care: Express Care Visit Vital Signs Vital signs: Vital Signs Temperature 98.1 F 09/08/22 08:22 Pulse Rate 86 09/08/22 08:22 Respiratory Rate 16 09/08/22 08:22 Blood Pressure 128/82 09/08/22 08:22 Pulse Oximetry 100 09/08/22 08:22 Temperature 98.1 F 09/08/22
== END 2022-09-08 09:19 | disposition home or self-care (01) ==
PROVIDERS: Emergency Provider Nurse Practitioner; PCP Family Medicine
DX: M54.6 Pain in thoracic spine (principal); N30.00 Acute cystitis without hematuria; I10 Essential (primary) hypertension; E66.9 Obesity, unspecified; Z68.31 Body mass index [BMI] 31.0-31.9, adult
CPT/HCPCS: 81003; 87086; 99213; G0463

== ENCOUNTER 2022-09-16 22:29 | Emergency (ER) | payer BC, SELFPAY ==
--- NOTE | ~2022-09-16 | CT_ITS ---
CT of the Abdomen and Pelvis: Indication: Abdominal pain Technique: 2.5 mm axial scans were obtained through the abdomen and pelvis following intravenous adm inistration of 100 cc of Omnipaque 350. Dose reduction technique was used on this scan by utilizing a utomated exposure control and iterative reconstruction technique. The dose-length product (DLP) was 6 30.16 mGy-cm. Findings: Scans through the lung bases are unremarkable. The liver, spleen, pancreas, gallbladder, adrenals and kidneys are within normal limits. No evidence of aortic aneurysm. No lymphadenopathy. No bowel obstruction or bowel wall thickening. There is no evidence to suggest acute appendicitis. Images through the pelvis were performed. Urinary bladder unremarkable. No adnexal mass evident. No a scites. Impression: No significant abnormalities seen. Reviewed, dictated and finalized at [facility]. NIZER Impression: No significant abnormalities seen.
[2022-09-16 22:33] VITALS: BP 126/75; PULSE 100; RESP 16; TEMP 36.9; O2SAT 97
--- NOTE | 2022-09-16 23:22 | ED.BACK ---
HPI - Back Pain/Injury General Chief Complaint: Back Pain/Injury Stated Complaint: back pain Time Seen by Provider: 09/16/22 23:06 History of Present Illness HPI Narrative: Patient is a 31-year-old female here for evaluation of upper thoracic back pain over the past 4 days. Patient states that she was seen at an urgent care facility upon symptom onset and was told she may have a UTI. She has been prescribed macrobid and cyclobenzaprine without relief of her symptoms. Pain worsened today. Denies any urinary symptoms, fevers, chills, nausea, vomiting. Related Data Home Medications Medication Instructions Recorded Confirmed labetalol 100 mg tablet 100 mg PO BID 06/09/20 09/08/22 lisinopril 20 mg tablet 20 mg PO QAM 06/09/20 09/08/22 Allergies Allergy/AdvReac Type Severity Reaction Status Date / Time hydrocodone AdvReac Severe Nausea and Verified 09/16/22 22:32 Vomiting Review of Systems Review of Systems: Gen: Denies fevers or chills Eyes: Denies eye pain or visual change ENT: Denies congestion Respiratory: Denies shortness of breath or cough CV: Denies chest pain or palpitations GI: Denies abdominal pain nausea, emesis or diarrhea : denies burning, urgency, frequency or hematuria Musculoskeletal: reports back pain Neuro: Denies numbness, tingling, weakness or focal weakness Skin: Denies rash Except as documented, all other systems reviewed and negative PMFSH Past Medical History Medical History Hearing loss History of spontaneous HTN (hypertension) (normal spontaneous vaginal delivery) x4 Obesity Surgical History Surgical History H/O arthroscopic knee surgery History of D&C 04/2009 miscarriage Social History Social History Smoking status: Never smoker Second hand tobacco smoke exposure: No Alcohol intake: current Alcohol use details: on special occasions Substance use: never Living arrangements: with family Gender identity (if verbalized by the patient): Female Spiritual care concerns: No Exam Narrative: APPEARANCE: Well appearing, no pain in distress, well-nourished. Head: Normocephalic and atraumatic. EYES: PERRLA/EOMI, conjunctivae clear NOSE: No nasal drainage EARS: External ear normal in appearance THROAT: Oropharynx is clear. Mucous membranes are moist. NECK: Supple. No adenopathy, no masses. RESPIRATORY: Airway patent, respirations nonlabored. Clear to auscultation bilaterally, no rales, rhonchi, wheezing. CARDIOVASCULAR: Regular rate and rhythm without murmurs, rubs, or gallops. ABDOMINAL: Normoactive bowel sounds. Soft, nontender, nondistended. No rebound tenderness or guarding. MUSCULOSKELETAL: no tenderness to palpation along c, t or l spine. Extremities are warm and well-perfused. Moves all extremities well. No edema. NEURO: Normal speech. No focal neurologic deficits. SKIN: Skin is warm and dry. No rashes. PSYCHIATRIC: Normal affect/mood. Course Vital Signs Vital signs: Vital Signs Temperature 98.4 F 09/16/22 22:33 Pulse Rate 100 09/16/22 22:33 Respiratory Rate 16 09/16/22 22:33 Blood Pressure 126/75 09/16/22 22:33 Pulse Oximetry 97 09/16/22 22:33 Temperature 98.4 F 09/16/22 22:33 Pulse Rate 100 09/16/22 22:33 Respiratory Rate 16 09/16/22 22:33 Blood Pressure 126/75 09/16/22 22:33 Pulse Oximetry 97 09/16/22 22:33 MDM - Back Pain/Injury MDM Narrative Medical decision making narrative: 31-year-old female here for evaluation of midthoracic back pain over the past several days, now with epigastric discomfort. She is nontoxic in appearance and has normal vital signs, no tenderness to palpation along her thoracic spine or her epigastric region. Patient's CBC is unremarkable but her CMP does have an elevation in her live
[2022-09-16 23:34] LABS: Basophils Percent Auto 0.5 % (0.2-1.2); Eosinophils Absolute Auto 0.1 K/mm3 (0-0.3); Eosinophils Percent Auto 2.1 % (0-4.4); Hematocrit 40.8 % (37.0-47.0); Hemoglobin 13.7 g/dL (12.0-15.0); Immature Granulocyte Absolute 0.04 K/mm3 (0.00-0.031); Immature Granulocyte Percent A 0.6 % (0-0.5); Lymphocytes Absolute Auto 1.04 K/mm3 (0.9-3.2); Lymphocytes Percent Auto 16.4 % (18.3-44.2); Mean Corpuscular HGB Conc 33.6 g/dl (32-36); Mean Corpuscular Hemoglobin 30.4 pg (26-34); Mean Corpuscular Volume 90.7 fl (80-100); Mean Platelet Volume 9.7 fl (7.4-10.4); Monocytes Absolute Auto 0.5 K/mm3 (0.1-0.6); Monocytes Percent Auto 8.4 % (2.6-8.5); Neutrophils Absolute Auto 4.6 K/mm3 (1.3-6.7); Platelet Count Result 198 k/mm3 (150-375); Red Cell Distribution Width 11.6 % (11.5-14.5); White Blood Count 6.3 K/mm3 (4.5-10.0)
[2022-09-16] MEDS: BELLADONNA ALK/PHENOB ELIX 10 ML, MAG HYDROX/ALUMINUM HYD/SIMETH 30 ML, LIDOCAINE HCL 2... PO (23:40)
[2022-09-16 23:46] LABS: Alanine Aminotransferase 157 U/L (6-35); Albumin Level 4.6 g/dL (3.5-5.1); Alkaline Phosphatase 134 U/L (38-126); Anion Gap 6 mmol/L (8-16); Aspartate Amino Transferase 83 U/L (14-36); Bilirubin,Total 1.1 mg/dL (0.2-1.3); Blood Urea Nitrogen 14 mg/dL (7-17); Calcium 8.9 mg/dL (8.4-10.2); Carbon Dioxide 26 mmol/L (22-30); Chloride 100 mmol/L (98-107); Estimated CRCL calculation 85 ml/min; Estimated Glomerular Filt Rate > 60; Glucose 99 mg/dL (65-110); Lipase 57 U/L (23-300); Potassium 3.8 mmol/L (3.4-5.0); Sodium 132 mmol/L (137-145)
[2022-09-17 00:28] LABS: Appearance Urine Clear (Clear); Bilirubin Urine Negative (Negative); Blood Urine Negative (Negative); Color Urine Yellow (Yellow); Glucose Urine UA Negative (Negative); Ketones Urine Negative (Negative); Leukocyte Esterase Ur Negative LEU/UL (Negative); Nitrate Urine Negative (Negative); Protein Urine Negative (Negative); Urobilinogen Urine 0.2 mg/dL (<2.0)
[2022-09-17 00:31] LABS: Bacteria Urine Trace /hpf; Mucus Urine Rare /lpf; RBC Urine 0-2 /hpf (0-2); Squamous Epithelial Cell Urine Few /hpf (Few); WBC Urine 0-3 /hpf
[2022-09-17 00:32] LABS: Add Urine Microscopic? NO
[2022-09-17] MEDS: KETOROLAC 15 MG/ML VIAL (*BKC) IV PUSH (02:15)
[2022-09-17] MEDS: LIDOCAINE 5% PATCH 1 PATCH TRANSDERM (02:15)
[2022-09-17 02:51] VITALS: BP 124/71; PULSE 76; RESP 16; O2SAT 98
== END 2022-09-17 02:52 | disposition home or self-care (01) ==
PROVIDERS: Emergency Provider Physician Assistant; PCP Family Medicine
DX: M54.6 Pain in thoracic spine (principal); I10 Essential (primary) hypertension; E66.9 Obesity, unspecified; Z68.32 Body mass index [BMI] 32.0-32.9, adult
CPT/HCPCS: 36415; 74177; 80053; 81003; 81025; 83605; 83690; 85025; 96374; 99284; A9270; J1885; Q9967

== ENCOUNTER 2023-04-26 10:28 | Emergency (ER) | payer BC, SELFPAY ==
[2023-04-26 10:35] VITALS: BP 130/96; PULSE 103; RESP 16; TEMP 36.8; O2SAT 100
[2023-04-26 10:36] VITALS: BP 130/96; PULSE 103; RESP 16; TEMP 36.8; O2SAT 100
--- NOTE | 2023-04-26 10:42 | ED.NAVMDI ---
HPI - Nausea/Vomiting/Diarrhea General Chief complaint: Nausea/Vomiting/Diarrhea Stated complaint: VOMITING/DRY HEAVES/BODY NUMBNESS Time Seen by Provider: 04/26/23 10:38 Source: patient and RN notes reviewed Mode of arrival: ambulatory Limitations: no limitations History of Present Illness HPI Narrative: Patient presents today complaining of nausea and vomiting that started around 430 this morning. Patient states she did have some alcohol last night but states it was not an overly excessive amount. Reports that she has vomited at least 10 times since onset of symptoms. States that she vomits after every time she tries to intake fluids. She has also tried to take Pepto and [place] without relief of symptoms. Denies abdominal pain, diarrhea, fever. Related Data Home Medications Medication Instructions Recorded Confirmed labetalol 100 mg tablet 100 mg PO BID 06/09/20 04/26/23 lisinopril 20 mg tablet 10 mg PO QAM 09/24/22 04/26/23 Allergies Allergy/AdvReac Type Severity Reaction Status Date / Time hydrocodone AdvReac Severe Nausea and Verified 04/26/23 10:35 Vomiting Review of Systems Review of Systems: CONSTITUTIONAL: Denies body aches, fever, chills, or sweats. EYES: Denies visual changes, redness, or discharge. ENT: Denies rhinorrhea, congestion, sore throat, or otalgia. CARDIOVASCULAR: Denies chest pain, palpitations, or edema. RESPIRATORY: Denies cough or dyspnea. GASTROINTESTINAL: Denies abdominal pain, or diarrhea.+ nausea and vomiting GENITOURINARY: Denies dysuria or hematuria. SKIN: Denies rash, itching, or wounds. MUSCULOSKELETAL: Denies back pain, joint pain, or myalgia. NEUROLOGIC: Denies headache, numbness, tingling, or weakness. PSYCH: Denies depression or anxiety. [facility] Past Medical History Medical History Hearing loss History of spontaneous HTN (hypertension) (normal spontaneous vaginal delivery) x4 Obesity Surgical History Surgical History H/O arthroscopic knee surgery History of D&C 04/2009 miscarriage Social History Social History Smoking status: Never smoker Second hand tobacco smoke exposure: No Alcohol intake: current Alcohol use details: on special occasions Substance use: never Lack of Transportation: No Lack of Food: Never True Current Housing: I Have Housing Concerned About Future Housing: No Difficulty Paying Gas/Electric Bills: No Difficulty Paying for Meds: No Currently Unemployed: No Education: Associate Degree Difficulty w/ Childcare or Family Care: No Living arrangements: with family Gender identity (if verbalized by the patient): Female Spiritual care concerns: No Comments At time of signature, I have reviewed and agree with nursing past medical, surgical, social and family history unless otherwise noted. Please see nursing chart for further information. There is no relevant family history pertinent to the presenting complaint Exam Narrative: GENERAL: Mildly ill-appearing, well-nourished, and in no acute distress. HEAD: Normocephalic, atraumatic. EYES: EOMI. No redness or drainage. Conjunctivae normal. ENT: Mucous membranes pink and moist. NECK: Normal AROM. CHEST: No respiratory distress. Clear to auscultation. HEART: Regular rate and rhythm. No murmur appreciated. Normal peripheral pulses. ABDOMEN: Soft, nontender, nondistended, normal active bowel sounds. EXTREMITIES: Normal range of motion. No edema. SKIN: Warm, dry, no rash. Capillary refill normal. Normal skin turgor. NEURO: No focal deficits. Alert and oriented x3. Gait steady. PSYCH: Normal affect. No signs of depression or anxiety. Course Course Emergency Course: 1045- Pt given a dose of Zofran. 1105- Patient states she is not feeling any be
[2023-04-26] MEDS: ONDANSETRON HCL ODT 4 MG TABLET 8 MG SUBLINGUAL (10:45)
[2023-04-26] MEDS: PROMETHAZINE HCL 25 MG/ML AMPUL IM (11:12)
== END 2023-04-26 11:48 | disposition home or self-care (01) ==
PROVIDERS: Emergency Provider Nurse Practitioner; PCP Family Medicine
DX: R11.2 Nausea with vomiting, unspecified (principal); I10 Essential (primary) hypertension; Z79.899 Other long term (current) drug therapy
CPT/HCPCS: 96372; 99213; A9270; G0463; J2550

== ENCOUNTER 2023-09-19 08:08 | Emergency (ER) | payer BC, SELFPAY ==
--- NOTE | 2023-09-19 08:13 | ED.GENADULT ---
HPI - General Adult General Chief complaint: Headache Stated complaint: ELEVATED BLOOD PRESSURE/FEELS WEIRD Source: patient, RN notes reviewed and old records reviewed Mode of arrival: ambulatory Limitations: no limitations History of Present Illness HPI narrative: 32-year-old female presents to [facility] with complaints of headache and slight shortness of breath this started couple days ago. Patient states is worried because home blood pressure was reading 140 over 85-95. patient states is worried she is having anxiety attack. Patient states recently lost her primary care physician due to insurance reasons. Related Data Home Medications Medication Instructions Recorded Confirmed labetalol 100 mg tablet 100 mg PO BID 06/09/20 09/19/23 lisinopril 20 mg tablet 10 mg PO QAM 09/24/22 09/19/23 Allergies Allergy/AdvReac Type Severity Reaction Status Date / Time hydrocodone AdvReac Severe Nausea and Verified 09/19/23 08:16 Vomiting Review of Systems Constitutional: Constitutional: Reports no additional constitutional complaints, Denies body ache(s), Denies chills, Denies fatigue, Denies fever(s) and Reports headache(s) Eyes: Eyes: Reports no additional eye complaints and Denies blurry vision ENT: Reports system reviewed and no additional complaints, except as documented, Denies vertigo, Denies dizziness, Denies ear discharge, Denies otalgia, Denies facial pain, Denies headache(s), Denies nasal congestion, Denies nasal discharge, Denies sinus pain, Denies sinus pressure and Denies sore throat Cardiovascular: Cardiovascular: Reports no additional cardiovascular complaints, Denies chest pain, Denies chest pain at rest, Denies rapid heart rate and Denies dyspnea Respiratory: Respiratory: Reports no additional respiratory complaints, Denies chest congestion, Denies cough, Denies pain on inspiration, Denies pain with cough and Reports dyspnea Gastrointestinal: Gastrointestinal: Denies abdominal pain, Denies diarrhea, Denies nausea and Denies vomiting Integumentary/Breasts: Skin/Breast: Denies rash Neurologic: Reports system reviewed and no additional complaints, except as documented, Denies vertigo, Denies dizziness and Reports headache(s) Endocrine: Endocrine: Denies fatigue PMFSH Past Medical History Medical History Hearing loss History of spontaneous HTN (hypertension) (normal spontaneous vaginal delivery) x4 Obesity Surgical History Surgical History H/O arthroscopic knee surgery History of D&C 04/2009 miscarriage Social History Social History Smoking status: Never smoker Second hand tobacco smoke exposure: No Alcohol intake: current Alcohol use details: on special occasions Substance use: never Lack of Transportation: No Lack of Food: Never True Current Housing: I Have Housing Concerned About Future Housing: No Difficulty Paying Gas/Electric Bills: No Difficulty Paying for Meds: No Currently Unemployed: No Education: Associate Degree Difficulty w/ Childcare or Family Care: No Living arrangements: with family Gender identity (if verbalized by the patient): Female Spiritual care concerns: No Comments At the time of my signature, I reviewed and agree with the nursing past medical, surgical, social, and family history. There is no relevant family history pertinent to the patient complaint. Exam Const: General: cooperative, healthy appearing, no acute distress and well nourished Nutritional Appearance: well nourished Orientation/consciousness: patient oriented x3 Limitations: no limitations HENMT: Head: normal to inspection and normocephalic Ears: external ears normal and mastoids normal Face/Nose/Sinus: normal facial exam Face and sinus: normal facial exam Mouth: Yes Normal oral and
[2023-09-19 08:17] VITALS: BP 129/88; PULSE 91; RESP 18; TEMP 36.9; O2SAT 100
== END 2023-09-19 08:45 | disposition home or self-care (01) ==
PROVIDERS: Emergency Provider Registered Nurse
DX: Z01.30 Encounter for examination of blood pressure without abnormal findings (principal); G44.89 Other headache syndrome; I10 Essential (primary) hypertension; E66.9 Obesity, unspecified; Z68.32 Body mass index [BMI] 32.0-32.9, adult
CPT/HCPCS: 93005; 99211; G0463

== ENCOUNTER 2023-09-19 14:19 | Emergency (ER) | payer BC, SELFPAY ==
[2023-09-19 14:46] VITALS: BP 120/73; PULSE 96; RESP 16; TEMP 36.8; O2SAT 100
--- NOTE | 2023-09-19 14:50 | ECG_ITS ---
Measurements Intervals [place] Rate: 93 P: 7 ND: 157 QRS: 44 QRSD: 99 T: 29 QT: 340 QTc: 423 Interpretive Statements SINUS RHYTHM COMPARED TO ECG 01/03/2022 18:38:04 NO SIGNIFICANT CHANGES Electronically Signed On 09-19-2023 15:54:47 [employer] by Saeed Moya M.D.
--- NOTE | 2023-09-19 17:10 | PC.NURSE ---
Addendum entered by Ifeoma Samuel RN 09/19/23 18:00: DID NOT ANSWER PAGE Original Note: DNAP X1
--- NOTE | 2023-09-19 17:19 | PC.NURSE ---
Addendum entered by Ifeoma Samuel RN 09/19/23 18:00: DID NOT ANSWER PAGE Original Note: DNAP X2
--- NOTE | 2023-09-19 17:25 | PC.NURSE ---
Addendum entered by Ifeoma Samuel RN 09/19/23 18:00: DID NOT ANSWER PAGE Original Note: DNAP X3
== END 2023-09-19 17:25 | disposition left against medical advice (07) ==
PROVIDERS: Emergency Provider Preventive Medicine Aerospace Medicine
DX: R03.0 Elevated blood-pressure reading, without diagnosis of hypertension (principal)
CPT/HCPCS: 93005; 99199

== ENCOUNTER 2023-10-02 16:51 | Emergency (ER) | payer BC, SELFPAY ==
[2023-10-02 17:01] VITALS: BP 135/83; PULSE 113; RESP 18; TEMP 37.4; O2SAT 98
--- NOTE | 2023-10-02 17:01 | ED.GENADULT ---
HPI - General Adult General Chief complaint: Upper Respiratory Infection Stated complaint: Sore Throat and Congestion Source: patient, RN notes reviewed and old records reviewed Mode of arrival: ambulatory Limitations: no limitations History of Present Illness HPI narrative: 32-year-old female presents to [facility] with complaints of congestion, sore throat, headache, myalgia, fever, chills that started yesterday. Patient taking [id number] medications with no relief. Patient denies chest pain, shortness of breath, wheezing, dizziness, weakness. Related Data Home Medications Medication Instructions Recorded Confirmed labetalol 100 mg tablet 100 mg PO BID 06/09/20 10/02/23 lisinopril 20 mg tablet 10 mg PO QAM 09/24/22 10/02/23 Allergies Allergy/AdvReac Type Severity Reaction Status Date / Time hydrocodone AdvReac Severe Nausea and Verified 09/19/23 08:16 Vomiting Review of Systems Constitutional: Constitutional: Reports no additional constitutional complaints, Reports body ache(s), Denies chills, Reports fatigue, Reports fever(s) and Reports headache(s) Eyes: Eyes: Reports no additional eye complaints and Denies blurry vision ENT: Reports system reviewed and no additional complaints, except as documented, Denies vertigo, Denies dizziness, Denies ear discharge, Denies otalgia, Denies facial pain, Denies headache(s), Reports nasal congestion, Reports nasal discharge, Denies sinus pain, Reports sinus pressure and Reports sore throat Cardiovascular: Cardiovascular: Reports no additional cardiovascular complaints, Denies chest pain, Denies chest pain at rest, Denies rapid heart rate and Denies dyspnea Respiratory: Respiratory: Reports no additional respiratory complaints, Denies chest congestion, Denies cough, Denies pain on inspiration, Denies pain with cough and Denies dyspnea Gastrointestinal: Gastrointestinal: Denies abdominal pain, Denies diarrhea, Denies nausea and Denies vomiting Integumentary/Breasts: Skin/Breast: Denies rash Neurologic: Reports system reviewed and no additional complaints, except as documented, Denies vertigo, Denies dizziness and Denies headache(s) Endocrine: Endocrine: Denies fatigue PMFSH Past Medical History Medical History Hearing loss History of spontaneous HTN (hypertension) (normal spontaneous vaginal delivery) x4 Obesity Surgical History Surgical History H/O arthroscopic knee surgery History of D&C 04/2009 miscarriage Social History Social History Smoking status: Never smoker Second hand tobacco smoke exposure: No Alcohol intake: current Alcohol use details: on special occasions Substance use: never Lack of Transportation: No Lack of Food: Never True Current Housing: I Have Housing Concerned About Future Housing: No Difficulty Paying Gas/Electric Bills: No Difficulty Paying for Meds: No Currently Unemployed: No Education: Associate Degree Difficulty w/ Childcare or Family Care: No Living arrangements: with family Gender identity (if verbalized by the patient): Female Spiritual care concerns: No Comments At the time of my signature, I reviewed and agree with the nursing past medical, surgical, social, and family history. There is no relevant family history pertinent to the patient complaint. Exam Const: General: cooperative, healthy appearing, no acute distress and well nourished Nutritional Appearance: well nourished Orientation/consciousness: patient oriented x3 Limitations: no limitations HENMT: Head: normal to inspection and normocephalic Ears: external ears normal, TM's normal bilaterally, EAC's normal and mastoids normal Face/Nose/Sinus: Normal nasal mucous membranes and turbinates present, normal facial exam and sinus tenderness Fa
== END 2023-10-02 17:27 | disposition home or self-care (01) ==
PROVIDERS: Emergency Provider Registered Nurse
DX: B34.9 Viral infection, unspecified (principal); Z20.822 Contact with and (suspected) exposure to COVID-19; I10 Essential (primary) hypertension; E66.9 Obesity, unspecified; Z68.32 Body mass index [BMI] 32.0-32.9, adult
CPT/HCPCS: 87081; 87426; 87804; 87880; 99213; G0463

== ENCOUNTER 2024-06-16 08:10 | Outpatient (CLI) | payer BC, SELFPAY ==
[2024-06-16 12:05] LABS: Hematocrit 40.9 % (37.0-47.0); Hemoglobin 13.3 g/dL (12.0-15.0); Mean Corpuscular HGB Conc 32.5 g/dl (32-36); Mean Corpuscular Hemoglobin 29.8 pg (26-34); Mean Corpuscular Volume 91.5 fl (80-100); Mean Platelet Volume 10.6 fl (7.4-10.4); Platelet Count Result 212 k/mm3 (150-375); Red Blood Count 4.47 M/mm3 (4.2-5.4); Red Cell Distribution Width 11.9 % (11.5-14.5); White Blood Count 6.1 K/mm3 (4.5-10.0)
[2024-06-16 12:27] LABS: Vitamin D 25 Hydroxy 25.1 ng/mL
[2024-06-16 12:28] LABS: Alanine Aminotransferase 32 U/L (6-35); Albumin Level 4.5 g/dL (3.5-5.1); Alkaline Phosphatase 96 U/L (38-126); Anion Gap 5 mmol/L (4-12); Aspartate Amino Transferase 63 U/L (14-36); Blood Urea Nitrogen 9 mg/dL (7-17); Calcium 9.9 mg/dL (8.4-10.2); Carbon Dioxide 29 mmol/L (22-30); Chloride 102 mmol/L (98-107); Cholesterol 206 mg/dL (0-200); Estimated Glomerular Filt Rate > 60; Glucose 96 mg/dL (65-110); HDL Direct 67 mg/dL; Potassium 4.8 mmol/L (3.4-5.0); Sodium 136 mmol/L (137-145); Triglycerides 83 mg/dL (<150)
[2024-06-16 12:32] LABS: LDL Cholesterol Direct 95 mg/dL
== END 2024-06-16 08:11 | disposition home or self-care (01) ==
LOC: ANHGOSHLAB 08:11
PROVIDERS: PCP Nurse Practitioner; Visit Provider Nurse Practitioner
DX: Z76.89 Persons encountering health services in other specified circumstances (principal); E55.9 Vitamin D deficiency, unspecified
CPT/HCPCS: 36415; 80053; 80061; 82306; 84443; 85027

== ENCOUNTER 2024-06-30 13:17 | Outpatient (CLI) | payer BC, SELFPAY ==
--- NOTE | ~2024-06-30 | MR_ITS ---
EXAMINATION: MR knee LT wo con DATE: 06/30/2024 14:02 INDICATION: Left knee pain TECHNIQUE: Magnetic resonance imaging (MRI) of the left knee was performed without intravenous contra st. Sequences included coronal PD-weighted FSE, coronal PD-weighted FS FSE, sagittal T2-weighted FSE , sagittal PD-weighted FS FSE and axial PD weighted fat saturated FSE. COMPARISON: Left knee radiographs dated 06/23/2024 FINDINGS: Medial compartment: Medial meniscus is normal. Articular cartilage is normal. Lateral compartment: Lateral meniscus is normal. Articular cartilage is normal. Patellofemoral compartment: Articular cartilage is normal. Ligaments and tendons: Anterior and posterior cruciate ligaments are normal. The medial collateral ligament and fibular rigo ateral ligament complex are normal. The extensor mechanism is normal. The visualized medial and later al hamstring tendons as well as the iliotibial band are normal. Fluid: Physiologic amount of fluid in the joint space. No loose osteochondral bodies identified. Osseous/other: Normal marrow signal. Small bone islands at the medial tibial plateau. No fracture or pathologic paulino ow replacing process. IMPRESSION: 1. Unremarkable MRI of the left knee. No etiology for reported left knee pain. 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
== END 2024-06-30 13:18 | disposition home or self-care (01) ==
LOC: GOSHIMG 13:18
PROVIDERS: PCP Nurse Practitioner; Visit Provider Nurse Practitioner Family
DX: M25.562 Pain in left knee (principal)
CPT/HCPCS: 73721

== ENCOUNTER 2024-08-31 11:11 | Outpatient (CLI) | payer BC, SELFPAY ==
--- OUTSIDE RECORDS SUMMARY | 2024-08-31 12:06 | XMS_ITS | Clinical Summary ---
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
[2024-08-31 13:42] LABS: Influenza A QL RT-PCR Positive (Negative); Influenza B QL RT-PCR Negative (Negative); RSV RNA, RT-PCR Negative (Negative); SARS-CoV-2 RNA PCR Negative (Negative)
== END 2024-08-31 11:12 | disposition home or self-care (01) ==
LOC: ANHGOSHLAB 11:12
PROVIDERS: PCP Nurse Practitioner; Visit Provider Nurse Practitioner
DX: R50.9 Fever, unspecified (principal); Z20.822 Contact with and (suspected) exposure to COVID-19
CPT/HCPCS: 87637

== ENCOUNTER 2025-05-25 11:55 | Outpatient (CLI) | payer BC, SELFPAY ==
--- NOTE | 2025-05-25 12:08 | ECG_ITS ---
Test Date: 2025-05-25 12:20:26 Measurements Intervals [place] Rate: 66 P: -11 RI: 169 QRS: 51 QRSD: 102 T: 21 QT: 371 QTc: 389 Interpretive Statements SINUS RHYTHM WITH SINUS ARRHYTHMIA No previous ECG available for comparison Electronically Signed On 05-25-2025 21:21:52 [employer] REPRESENTATIVE by Fabricio Rod M.D.
[2025-05-25 13:08] LABS: Alanine Aminotransferase 104 U/L (6-35); Albumin Level 4.9 g/dL (3.5-5.1); Alkaline Phosphatase 235 U/L (38-126); Anion Gap 10 mmol/L (4-12); Aspartate Amino Transferase 50 U/L (14-36); Bilirubin,Total 1.1 mg/dL (0.2-1.3); Blood Urea Nitrogen 6 mg/dL (7-17); Calcium 9.8 mg/dL (8.4-10.2); Carbon Dioxide 26 mmol/L (22-30); Chloride 100 mmol/L (98-107); Estimated Glomerular Filt Rate > 60; Glucose 95 mg/dL (65-110); Potassium 4.1 mmol/L (3.4-5.0); Sodium 136 mmol/L (137-145); Total Protein 8.8 g/dL (6.3-8.2)
--- OUTSIDE RECORDS SUMMARY | 2025-05-25 14:05 | XMS_ITS | Data Portability ---
Author Organization [facility] Address [address] [place] [address] Assessment No assessment recorded. Plan of Treatment Reminders Order Date Submit Date Provider Last Modified By Organization Details Last Modified Time Details Appointments SURG PRE OP 2024 09:30A Kayleen MARLEY MD Not available Not available Not available Robotic TLH 2024 07:30A Kayleen MARLEY MD Not available Not available Not available SURG POST OP 2024 09:30A Kayleen MARLEY MD Not available Not available Not available Lab hormone panel, serum or plasma 2024 025 [facility] (Lab), [address], [place], [address], 04/27/2025 16:38:44 TSH, serum or plasma 2024 025 [facility] (Lab), [address], [place], [address], 04/27/2025 16:38:43 CBC w/ auto diff 2024 025 [facility] (Lab), [address] [place], [address], 04/27/2025 16:38:42 CMP, serum or plasma 2024 025 [facility] (Lab), [address] [place], [address], 04/27/2025 16:38:42 HbA1c (hemoglob in A1c), blood 2024 025 [facility] (Lab), [address], [place], [address], 04/27/2025 16:38:45 progester one, serum 2024 025 [facility] (Lab), [address], [place], [address], 04/27/2025 16:38:44 prolactin , serum 2024 025 [facility] (Lab), [address], [place], [address], 04/27/2025 16:38:43 testoster one free/test osterone total, ratio, serum 2024 025 [facility] (Lab), [address], [place], [address], 04/27/2025 16:38:45 test, urine 2024 025 [email or web address] [place], [address], [place], [address], 04/22/2025 12:55:48 urinalysi s, dipstick 2024 025 [email or web address] [address], [address], [place], [address], 04/22/2025 12:56:47 Referral None recorded. Procedures None recorded. Surgeries oophorect jonathan (SURG) 2024 025 [email or web address] [facility], [facility] [address], [address], 05/03/2025 15:55:53 robotic assisted hysterect jonathan with salpingec rhiannon (SURG) 2024 025 [id number] [facility], [address] [place], [address], 05/07/2025 10:29:20 Imaging US, pelvis 2024 [address], [address], [place], [address], 04/28/2025 11:30:49 US, transvagi nal 2024 [address], [address], [place], [address], 04/28/2025 11:30:49 Medication Orders estradiol 2 mg tablet 2024 [facility]/Pharmacy #[id number], [address] [place], [address], 05/03/2025 15:14:36 Paxil 10 mg tablet [address] [id number] [address] [place], [address], 04/22/2025 12:55:07 Patient TargetsNo targets recorded. Patient InstructionsNo instructions recorded. Reason for Referral None Reported. Results Created Date Observation Date Name Description Value Unit Range Abnormal Flag Note LastModifiedBy Organization Detail LastModifiedTime 04/22/2004/22/2025 CBC W/DIF F WBC 5.8 10'3/ uL 3.5-10 .5 Not Available [facility] (Lab) [address] [facility], [place], [address], 04/27/2025 16:38:42 04/22/20 25 04/22/2025 CBC W/DIF F RBC 4.42 10'6/ uL (based on docume nted legal sex) 3.80-5 .20 Not Available [facility] (Lab) [address] [facility], [place], [address], 04/27/2025 16:38:42 04/22/20 25 04/22/2025 CBC W/DIF F HGB 13.1 g/dL (based on docume nted legal sex) 11.6-1 5.4 Not Available [facility] (Lab) [address] [place], [address], 04/27/2025 16:38:42 04/22/20 25 04/22/2025 CBC W/DIF F HCT 38.6 % (based on docume nted legal sex) 34.0-4 5.0 Not Available [facility] (Lab) [address], [place], [address], 04/27/2025 16:38:42 04/22/20 25 04/22/2025 CBC W/DIF F MCV 87.3 fL 80.0-9 9.0 Not Available [facility] (Lab) [address], [place], [address], 04/27/2025 16:38:42 04/22/20 25 04/22/2025 CBC W/DIF F MCH 29.6 pg 27.0-3 4.0 Not Available [facility] (Lab) [address], [place], [address], 04/27/2025 16:38:42 04/22/20 25 04/22/2025 CBC W/DIF F MCHC 33.9 g/dL 32.0-3 5.5 Not Available [facility] (Lab) [address] [place], [address], 04/27/2025 16:38:42 04/22/20 25 04/22/2025 CBC W/DIF F RDW 12.0 % 11.0-1 5.0 Not Available [facility] (Lab) [address] [facility], [place], [address], 04/27/2025 16:38:42 04/22/20 25 04/22/2025 CBC W/DIF F plt 281 10'3/ uL 150-40 0 Not Available [facility] (Lab) [address], [place], [address], 04/27/2025 16:38:42 04/22/20 25 04/22/2025 CBC W/DIF F MPV 10.6 fL 8.8-12 .1 Not Available [facility] (Lab) [address] [facility], [place], [address], 04/27/2025 16:38:42 04/22/20 25 04/22/2025 CBC W/DIF F NRBC's 0.0 % 0.0 Not Available [facility] (Lab) [address] [facility], [place], [address], 04/27/2025 16:38:42 04/22/20 25 04/22/2025 CBC W/DIF F absolute NRBCs 0.0 10'3/ uL no refere nce range establ ished Not Available [facility] (Lab) [address] [facility], [place], [address], 04/27/2025 16:38:42 04/22/20 25 04/22/2025 CBC W/DIF F neutrophils 55.0 % 34.0-7 3.0 Not Available [facility] (Lab) [address] [facility], [place], [address], 04/27/2025 16:38:42 04/22/20 25 04/22/2025 CBC W/DIF F lymphocytes 35.2 % 15.0-5 0.0 Not Available [facility] (Lab) [address] [facility], [place], [address], 04/27/2025 16:38:42 04/22/20 25 04/22/2025 CBC W/DIF F monocytes 7.5 % 1.0-15 .0 Not Available [facility] (Lab) [address] [facility], [place], [address], 04/27/2025 16:38:42 04/22/20 25 04/22/2025 CBC W/DIF F eosinophils 1.5 % 0.0-8. 0 Not Available [facility] (Lab) [address] [facility], [place], [address], 04/27/2025 16:38:42 04/22/20 25 04/22/2025 CBC W/DIF F basophils 0.5 % 0.0-2. 0 Not Available [facility] (Lab) [address] [facility], [place], [address], 04/27/2025 16:38:42 04/22/20 25 04/22/2025 CBC W/DIF F immature granulocytes 0.3 % no define d refere nce range Immat ure Granu locyt es (IG) repre sents autom ated enume ratio n of Metam yeloc ytes, Myelo cytes and Promy elocy dilma when IG is < 5%. Blast s are not inclu ded in IG and repor jarvis separ ately if prese nt. Not Available [facility] (Lab) [address] [facility], [place], [address], 04/27/2025 16:38:42 04/22/20 25 04/22/2025 CBC W/DIF F absolute neutrophils 3.2 10'3/ uL 1.5-8. 0 Not Available [facility] (Lab) [address] [facility], [place], [address], 04/27/2025 16:38:42 04/22/20 25 04/22/2025 CBC W/DIF F absolute lymphocytes 2.1 10'3/ uL 1.0-4. 0 Not Available [facility] (Lab) [address] [facility], [place], [address], 04/27/2025 16:38:42 04/22/20 25 04/22/2025 CBC W/DIF F absolute monocytes 0.4 10'3/ uL 0.2-1. 0 Not Available [facility] (Lab) [address] [facility], [place], [address], 04/27/2025 16:38:42 04/22/20 25 04/22/2025 CBC W/DIF F absolute eosinophils 0.1 10'3/ uL 0.0-0. 6 Not Available [facility] (Lab) [address] [facility], [place], [address], 04/27/2025 16:38:42 04/22/20 25 04/22/2025 CBC W/DIF F absolute basophils 0.0 10'3/ uL 0.0-0. 3 Not Available [facility] (Lab) [address] [facility], [place], [address], 04/27/2025 16:38:42 04/22/20 25 04/22/2025 CBC W/DIF F absolute immature granulocytes 0.0 10'3/ uL 0.00-0 .10 Refer ence range s for nonbi nary/ inter sex or unspe cifie d gende r patie nts have not been estab lishe d. Pleas e refer to the arabellao wing table for range s estab lishe d for cisge nder patie nts and evalu ate in the clini bladimir jessica xt of the indiv idual patie nt: https ://kierra bridges book. nm.or g/gen derx Not Available [facility] (Lab) [address] [facility], [place], [address], 04/27/2025 16:38:42 04/22/20 25 04/22/2025 CMP(C OMPRE HENSI VE METAB OLIC PANEL ) sodium 142 mmol/ L 133-14 6 Not Available [facility] (Lab) [address] [facility], [place], [address], 04/27/2025 16:38:42 04/22/20 25 04/22/2025 CMP(C OMPRE HENSI VE METAB OLIC PANEL ) potassium 4.1 mmol/ L 3.5-5. 1 Not Available [facility] (Lab) [address] [facility], [place], [address], 04/27/2025 16:38:42 04/22/20 25 04/22/2025 CMP(C OMPRE HENSI VE METAB OLIC PANEL ) chloride 103 mmol/ L 98-107 Not Available [facility] (Lab) [address] [facility], [place], [address], 04/27/2025 16:38:42 04/22/20 25 04/22/2025 CMP(C OMPRE HENSI VE METAB OLIC PANEL ) carbon dioxide 26 mmol/ L 21-31 Not Available [facility] (Lab) [address] [facility], [place], [address], 04/27/2025 16:38:42 04/22/20 25 04/22/2025 CMP(C OMPRE HENSI VE METAB OLIC PANEL ) anion gap 13 mmol/ L 4-13 Not Available [facility] (Lab) [address] [facility], [place], [address], 04/27/2025 16:38:42 04/22/20 25 04/22/2025 CMP(C OMPRE HENSI VE METAB OLIC PANEL ) blood urea nitrogen 5 mg/dL 7-[address] [facility] (Lab) [address] [facility], [place], [address], 04/27/2025 16:38:42 04/22/20 25 04/22/2025 CMP(C OMPRE HENSI VE METAB OLIC PANEL ) creatinine 0.78 mg/dL 0.60-1 .30 Not Available [facility] (Lab) [address] [facility], [place], [address], 04/27/2025 16:38:42 04/22/20 25 04/22/2025 CMP(C OMPRE HENSI VE METAB OLIC PANEL ) egfrcr (CKD-epi 2020) >90 mL/mi n/1.7 3_m2 >=60 Not Available [facility] (Lab) [address] [facility], [place], [address], 04/27/2025 16:38:42 04/22/20 25 04/22/2025 CMP(C OMPRE HENSI VE METAB OLIC PANEL ) calcium 10.0 mg/dL 8.3-10 .5 Not Available [facility] (Lab) [address] [facility], [place], [address], 04/27/2025 16:38:42 04/22/20 25 04/22/2025 CMP(C OMPRE HENSI VE METAB OLIC PANEL ) glucose 79 mg/dL 70-100 Not Available [facility] (Lab) [address] [facility], [place], [address], 04/27/2025 16:38:42 04/22/20 25 04/22/2025 CMP(C OMPRE HENSI VE METAB OLIC PANEL ) protein, total 7.3 g/dL 6.4-8. 3 Not Available [facility] (Lab) [address] [facility], [place], [address], 04/27/2025 16:38:42 04/22/20 25 04/22/2025 CMP(C OMPRE HENSI VE METAB OLIC PANEL ) albumin 4.6 g/dL 3.5-5. 0 Not Available [facility] (Lab) [address] [facility], [place], [address], 04/27/2025 16:38:42 04/22/20 25 04/22/2025 CMP(C OMPRE HENSI VE METAB OLIC PANEL ) ALT 36 units /L 9-43 Not Available [facility] (Lab) [address] [facility], [place], [address], 04/27/2025 16:38:42 04/22/20 25 04/22/2025 CMP(C OMPRE HENSI VE METAB OLIC PANEL ) alkaline phosphatase 135 units /L 34-104 high Not Available [facility] (Lab) [address] [facility], [place], [address], 04/27/2025 16:38:42 04/22/20 25 04/22/2025 CMP(C OMPRE HENSI VE METAB OLIC PANEL ) AST 23 units /L 13-39 Not Available [facility] (Lab) [address] [facility], [place], [address], 04/27/2025 16:38:42 04/22/20 25 04/22/2025 CMP(C OMPRE HENSI VE METAB OLIC PANEL ) bilirubin, total 0.7 mg/dL 0.2-1. 2 Not Available [facility] (Lab) [address] [facility], [place], [address], 04/27/2025 16:38:42 04/22/20 25 04/22/2025 TSH, REFLE X FREE T4 TSH 1.51 uIU/m L 0.30-5 .33 Not Available [facility] (Lab) [address] [facility], [place], [address], 04/27/2025 16:38:43 04/22/20 25 04/22/2025 PROLA CTIN prolactin, total 12.80 NG/mL 4.79-2 3.30 This assay was perfo rmed using [employer] ratio n reage nts and test kits. Value s obtai catia with other assay metho ds or kits canno t be used inter [facility] [employer] . Not Available [facility] (Lab) [address] [place], [address], 04/27/2025 16:38:43 04/22/20 25 04/22/2025 PROGE STERO NE progesterone 0.19 NG/mL This assay was perfo rmed using [employer] ratio n reage nts and test kits. Value s obtai catia with other assay metho ds or kits canno t be used inter [facility] . Femal e Proge stero ne Range s: Folli cular phase 0.06- 0.89 ng/mL Ovula tion phase 0.12- 12.00 ng/mL Lutea l phase 1.83- 23.90 ng/mL Postm enopa usal <0.05 -0.13 ng/mL Healt hy Pregn ant Women 1st Trime ster 11.0- 44.30 2nd Trime ster 25.40 -83.3 0 3rd Trime ster 58.70 -214. 00 Not Available [facility] (Lab) [address] [facility], [place], [address], 04/27/2025 16:38:44 04/22/20 25 04/22/2025 FSH, LH, ESTRA DIOL estradiol 138.0 pg/mL This assay was perfo rmed using [employer] ratio n reage nts and test kits. Value s obtai catia with other assay metho ds or kits canno t be used inter [facility] . Femal e Estra diol Range s: Folli cular phase 12.4- 233 pg/mL Ovula tion phase 41.0- 398 pg/mL Lutea l phase 22.3- 341 pg/mL Postm enopa usal <5-13 8 pg/mL Healt hy Pregn ant Women 1st Trime ster 154-3 243 pg/mL 2nd Trime ster 1561- 40665 pg/mL 3rd Trime ster 8525- >3000 0 pg/mL Not Available [facility] (Lab) [address] [place], [address], 04/27/2025 16:38:44 04/22/20 25 04/22/2025 FSH, LH, ESTRA DIOL FSH 3.7 mIU/m L This assay was perfo rmed using [employer] ratio n reage nts and test kits. Value s obtai catia with other assay metho ds or kits canno t be used inter [facility] . Femal es Folli cular : 3.5-1 2.5 mIU/m L Ovula tion: 4.7-2 1.5 mIU/m L Lutea l: 1.7-7 .7 mIU/m L Postm enopa use: 25.8- 134.8 mIU/m L Not Available [facility] (Lab) [address] [place], [address], 04/27/2025 16:38:44 04/22/20 25 04/22/2025 FSH, LH, ESTRA DIOL LH 9.3 mIU/m L This assay was perfo rmed using [employer] ratio n reage nts and test kits. Value s obtai catia with other assay metho ds or kits canno t be used inter [facility] . Femal es Mid-F ollic ular: 2.4-1 2.6 mIU/m L Mid-C ycle: 14.0- 95.6 mIU/m L Mid-L uteal : 1.0-1 1.4 mIU/m L Postm enopa use: 7.7-5 8.5 mIU/m L Not Available [facility] (Lab) [address] [facility], [place], [address], 04/27/2025 16:38:44 04/22/20 25 04/22/2025 HEMOG LOBIN A1C hemoglobin A1C 5.2 % 4.0-5. 6 The Ameri can Diabe dilma Assoc iatio n recom mends that a prima ry goal of thera py shoul d be a HBA1C of < 7% and that physi cians shoul d reeva luate the treat ment regim en in patie nts with HBA1C value s consi stent ly > 8%. <5.7% Itzel l 5.7 - 6.4% Incre ased risk for diabe dilma >=6.5 % Diagn ostic of diabe dilma <7.0% Goal of thera py >8.0% Actio n sugge sted Not Available [facility] (Lab) [address] [facility], [place], [address], 04/27/2025 16:38:45 04/22/20 25 04/22/2025 TESTO STERO NE, FREE( DIALY SIS) AND TOTAL (LC/M S/MS) testosterone , total 37 NG/dL 2-45 For addit ional infor christie chapman e refer to http: //[facility] catterry n.que stdia gnost ics.c om/fa q/ Total Testo stero neLCM SMSFA Q165 (This link is being provi ded for infor levi merlos/ educa andree l purpo ses only. ) This test was devel oped and its ben tical perfo rmanc e allie cteri stics have been deter mined by [facility] kenyetta Salgadoi [place], [place]. It has not been clear ed or appro figueroa by the U.S. Food and Drug Admin istra tion. This assay has been valid ated pursu ant to the CLIA regul ation s and is used for clini bladimir purpo ses. Not Available [facility] (Lab) [address] [facility], [place], [address], 04/27/2025 16:38:45 04/22/20 25 04/22/2025 TESTO STERO NE, FREE( DIALY SIS) AND TOTAL (LC/M S/MS) testosterone , free 3.9 pg/mL 0.1-6. 4 This test was devjulian duffy and its ben tical perfo rmanc e allie cteri stics have been deter mined by [employer] [place], [place]. It has not been clear ed or appro figueroa by the U.S. Food and Drug Admin istra tion. This assay has been valid ated pursu ant to the CLIA regul ation s and is used for clini bladimir purpo ses. Perfo rming Organ izati on Infor matio n: Site ID: [id number] Name: [employer] [facility] Add ss: [id number] [place], [place] Direc tor: Aaron Aggarwal MD PhD Not Available [facility] (Lab) [address] [facility], [place], [address], 04/27/2025 16:38:45 04/22/20 25 04/22/2025 pregn cedric test, urine HCG negati ve Not Available [place] [address], [place], [address], 04/22/2025 12:49:10 04/22/20 25 04/22/2025 urina lysis , dipst ick Leukocytes - Not Available [facility] [address], [place], [address], 04/22/2025 12:49:11 1004/22/2025 urina lysis , dipst ick Nitrite - Not Available [place] [address], [place], [address], 04/22/2025 12:49:11 04/22/2004/22/2025 urina lysis , dipst ick Urobilinogen - Not Available [facility] [address], [place], [address], 04/22/2025 12:49:11 04/22/2004/22/2025 urina lysis , dipst ick Protein trace Not Available [place] [address], [place], [address], 04/22/2025 12:49:11 04/22/2004/22/2025 urina lysis , dipst ick pH 8 Not Available [place] [address], [place], [address], 04/22/2025 12:49:11 04/22/2004/22/2025 urina lysis , dipst ick Specific [place] 1.000 Not Available [facility] [address], [place], [address], 04/22/2025 12:49:11 04/22/2004/22/2025 urina lysis , dipst ick Ketone - Not Available [place] [address], [place], [address], 04/22/2025 12:49:11 04/22/2004/22/2025 urina lysis , dipst ick Bilirubin - Not Available [facility] [address], [place], [address], 04/22/2025 12:49:11 04/22/2004/22/2025 urina lysis , dipst ick Glucose - Not Available [place] [address], [place], [address], 04/22/2025 12:49:11 04/22/2004/22/2025 urina lysis , dipst ick Appearance clear Not Available [facility] [address], [place], [address], 04/22/2025 12:49:11 04/22/2004/22/2025 urina lysis , dipst ick Color light yellow Not Available [place] [address], [place], [address], 04/22/2025 12:49:11 04/27/2004/27/2025 US, pelvi s No observ ation record ed. [facility] [address], [place], [address], 04/27/2025 12:32:37 04/27/2004/27/2025 US, trans vagin al No observ ation record ed. [facility] [address], [place], [address], 04/27/2025 12:32:48 04/27/2004/27/2025 US, pelvi s No observ ation record ed. [email or web address] [place] [address], [place], [address], 05/03/2025 13:46:15 Result Notes None recorded. Procedures Surgical History Date Name Laterality Status Provider Name and Address Organization Details Recorded Time 0 Tubal Ligation completed Verónica Costa [facility] 04/22/2025 12:41:07 Imaging Results None recorded. Procedure Notes None recorded. Medical Equipment None Reported. Allergies Allergen ID Allergen Name Allergen Category Reaction Reaction Severity Criticality Documentation Date Start Date Code Code System Note Provider Name and Address Organization Details Recorded Time 50985 codeine medicatio n Not available Not available Not available 04/22/2025 2670 RxNorm [facility]25 Medications Name Sig Start Date Stop Date Status Note LastModified by Organization Details LastModified Time paroxetine 10 mg tablet TAKE 1 TABLET BY MOUTH EVERY DAY active Not Available Not Available No t Available azithromyci n 250 mg tablet TAKE 2 TABLETS BY MOUTH TODAY, THEN TAKE 1 TABLET DAILY FOR 4 DAYS DIRECTED 04/22 completed Not Available Not Available Not Available lisinopril 20 mg tablet TAKE 1 TABLET BY MOUTH EVERY DAY IN THE MORNING active Not Available Not Available No t Available buspirone 10 mg tablet TAKE 1 TAB (10 MG) ORALLY TWICE A DAY 04/22 completed Not Available Not Available Not Available sertraline 25 mg tablet TAKE 1 TABLET BY MOUTH EVERY DAY 04/22 completed Not Available Not Available Not Available estradiol 2 mg tablet TAKE 1 TABLET BY MOUTH EVERY DAY active Not Available Not Available No t Available methylpredn isolone 4 mg tablets in a dose pack TAKE 6 TABLETS ON DAY 1 DIRECTED ON PACKAGE AND DECREASE BY 1 TAB EACH DAY FOR A TOTAL OF 6 DAYS 04/22 completed Not Available Not Available Not Available labetalol 100 mg tablet TAKE 1 TABLET BY MOUTH TWICE A DAY active Not Available Not Available No t Available sertraline 50 mg tablet TAKE 1 TAB BY MOUTH EVERY DAY 04/22 completed Not Available Not Available Not Available escitalopra m 10 mg tablet TAKE 1 TABLET BY MOUTH EVERY DAY 04/22 completed Not Available Not Available Not Available Vitals Date Recorded Body height Body mass index (BMI) Body weight Systolic And Diastolic Provider Name and Address Organization Details Last Updated DateTime 04/22/2025 157.48 cm 34.3 kg/m2 19915.57 g 146/82 mm[Hg] Verónica Costa [facility] 04/22/2025 12:30:13 Date Recorded Body height Body mass index (BMI) Body weight Systolic And Diastolic Provider Name and Address Organization Details Last Updated DateTime 05/03/2025 157.48 cm 33.5 kg/m2 00809.4 g 147/95 mm[Hg] Renuka Cazares [facility] 05/03/2025 14:32:31 Social History Question Answer Notes LastModified by Organizat ion Details LastModified Time Tobacco Smoking Status Current Every Day Smoker TCH, nicotine patches Verónica Costa [facility] 04/22/2025 12:38:57 Do You Have An Advance Directive? No [email or web address] Information not available 05/03/2025 Are You Blind Or Do You Have Difficulty Seeing? No [email or web address] Information not available 04/22/2025 What Is Your Level Of Caffeine Consumption? Occasional [email or web address] Information not available 04/22/2025 In The 14 Days Before Symptom Onset, Have You Had Close Contact With A Laboratory-confi rmed COVID-19 While That Case Was Ill? No [email or web address] Information not available 04/22/2025 In The 14 Days Before Symptom Onset, Have You Had Close Contact With A Person Who Is Under Investigation For COVID-19 While That Person Was Ill? No [email or web address] Information not available 04/22/2025 Have You Been To An Area Known To Be High Risk For COVID-19? No Information not available 04/22/2025 Are You Deaf Or Do You Have Serious Difficulty Hearing? No [email or web address] Information not available 04/22/2025 What Type Of Diet Are You Following? REGULAR [email or web address] Information not available 04/22/2025 What Is The Highest Grade Or Level Of School You Have Completed Or The Highest Degree You Have Received? [id number] [email or web address] Information not available 04/22/2025 Do You Use Protection During Sex? No [email or web address] Information not available 04/22/2025 Do You Use Your Seat Belt Or Car Seat Routinely? Yes [email or web address] Information not available 04/22/2025 Are You Sexually Active? Yes [email or web address] Information not available 04/22/2025 Do You Have Smoke And Carbon Monoxide Detectors In Your Home? Yes [email or web address] Information not available 04/22/2025 Do You Use Sunscreen Routinely? No [email or web address] Information not available 04/22/2025 Do You Have Difficulty Walking Or Climbing Stairs? No [email or web address] Information not available 04/22/2025 Sex: Unknown Functional Status Question Answer Note LastModified by Organizat ion Details LastModified Time What is your level of alcohol consumption? Occasional Information not available 04/22/2025 Are you currently employed? No [email or web address] Information not available 04/22/2025 Are you able to walk independently without assistance or assistive devices? YESWOREST [email or web address] Information not available 04/22/2025 Are you able to care for yourself independently? Yes [email or web address] Information not available 04/22/2025 Do you have difficulty dressing, bathing, grooming, or toileting? No [email or web address] Information not available 04/22/2025 Mental Status Question Answer Note LastModified by Organization D etails LastModified Time Do you feel stressed (tense, restless, nervous, or anxious, or unable to sleep at night)? [id number] [email or web address] Information not available 04/22/2025 Family History Nothing Reported Notes:Pt did not want to dis cuss fam hx Medical History Condition Response Allergies (Food, seasonal, environmental ) N Other N Drug/Latex Allergies/Reactions N Blood Transfusion N Breast Cancer N Dermatologic Disorders N Lung Disease N Defects or Inherited Disease N Breast Problem N Gestational Diabetes N Hematologic disorders N Anesthesia Complications N History of STI N Deep Vein Thrombosis N Polycystic ovary syndrome N Anxiety Disorder N Autoimmune disease N Arthritis N Polyps N Infertility N Acid Reflux (GERD) N History of abnormal pap N Cancer N Varicosities N Stroke N Neurologic/Epilepsy N Endometriosis N High Cholesterol N Fibromyalgia N Headaches N Kidney Disease N Heart Problems N Thyroid Problems N Kidney or Bladder Problems N GI Problems N Eating Disorder N Anemia N Art (IVF or FET) N Psychiatric Illness N Ovarian Cancer N Diabetes N Pulmonary (TB, Asthma) N Hepatitis/Liver Disease N No Past Medical History N Eczema N Urinary Tract Infection N Abuse/Domestic Violence N Asthma N Trauma/Violence N Depression/ depression N Heart Disease N Pre-Eclampsia N Hypertension Y Osteoporosis N Thrombophilias N Gynecological History Statement/Question Response Flow Heavy Date of LMP 04/11/2025 Was last menstrual period normal N STIs/STDs N Duration of Flow (days) Current Control Method Tubal Ligat ion Age at First Child 20 Are cycles usually normal N Date of Last Colonoscopy Most Recent Bone Density Sexually Active? Y Menses Monthly N Date of DEXA bone scan Age of first menstrual cycle 9 Date of Last Pap Smear Sexual Problems? Y Desired Control Method Withdrawal LMP Definite Obstetrics History GPAL:G 5 P 2 2 1 4 Type Value Full Term 2 Spontaneous 1 Premature 2 Living 4 Total 5 Past Encounters Encounter ID Performer Location Encounter Start Date Encounter Closed Date Diagnosis/Indication Diagnosis SNOMED-CT Code Diagnosis ICD10 Code Diagnosis IMO Codes Diagnosis Note [id number] HAILEY AYALA NP [place] [address] [address] 04/22/2025 11:57:14 04/22/2025 13:37:52 Pain in pelvis [id number] R10.20 [id number] Pelvic ultrasound ordered to r/o uterine/ov brayden causes of pelvic pain and cramping after intercours e.Patient to RTO for ultrasound f/u.Contac t clinic if pelvic pain increases in frequency or intensity. Also notify clinic of any new symptoms associated with pelvic pain. [place] [id number] R23.2 [id number] Reviewed self-help strategies (dietary changes/ex ercise/acu puncture/e tc.), herbal and other OTC therapies, hormonal options as well as other medication s used to treat common menopausal symptoms.L abs ordered to r/o metabolic abnormalit ies contributi ng to vasomotor symptoms.P atient interested in trialling Paxil 10 mg PO daily for hot flashes.Ri sks/benefi ts/AEs reviewed. Patient to RTO in 4-6 weeks for medication check. [id number] Parveen Marley MD [place] [address] [address] 04/27/2025 09:52:13 04/27/2025 10:54:21 Pain in pelvis [id number] R10.20 [id number] Parveen Marley MD [place] [address] [address] 05/03/2025 14:04:24 05/03/2025 15:20:25 Menopausal symptom [id number] N95.1 [id number] Menometrorrhagia [id number] 08 N92.1 [id number] This patient is a 34-year-ol d female presents for heavy vaginal bleeding. She has longstandi ng very heavy bleeding. Her menses are regular. However, they require double protection . Patient has accidents, getting blood on her bedding and clothing. Is affected work. She changes a pad or tampon every hour. She leaks blood around the pad and tampon. This bleeding has a profound impact on her quality of life and her activities of daily living. Patient also presented for ultrasound findings. She has 2 lesions on the right ovary. One is a hyperechoi c area with vascularit y. Mother is a hyperechoi c area with no vascularit y. It is smaller. We discussed these findings and reviewed the images together. We talked about her pain. Patient has pelvic pain she has right-side d pain that is intermitte nt wax and wanes. It is severe at times. Nothing is palliative and nothing is provocativ e. We discussed treatment options in detail. We discussed medical and surgical options. The patient would like definitive surgical treatment with removal of the right ovary. We agreed to robotic assisted hysterecto my with bilateral salpingect jonathan and right oophorecto my. The patient understand s the procedure. The procedure was described to the patient in great detail. the patient also understand s the risks. The risks were also explained in detail. She understand s that injuries May occur during surgery. She understand s these injuries can result in hospitaliz ation, more surgery, and severe illness. She understand s there is risk of hemorrhage and infection. I spent over 30 minutes on her care in total. Mass of ovary [id number] N83.8 [id number] Health Concerns Section Related Observation LastModified by Organization Detai ls LastModified Time None Recorded Concern Status LastModified by Organization Details LastModified Time None Recorded Advance Directives Directive N: Payers Insurance Date Sequence Insurance Name Policy Number Policy Ackerman Covered Member ID Ackerman Member ID Guarantor Name 05/25/2025 1 [facility] (PP[facility]) [id number] Keven Valentin [id number] Katie Valentin Notes Date Note Type Note Provider Name and Address Organization Details Recorded Time 04/22/2025 text/html 34 y/o patient presents hot flashes, fatigue, brain fog, and mood swings x one month.Patient c/o pelvic cramping after intercourse that lasts 2-3 additional days. Patient states that ibuprofen and heating pad does not help the pain.Hx tubal ligation in 2019.Reports monthly cycles with heavy flow, lasting 7-10 days. Neg urinary sx'sNeg GI sx'sNeg N/V/F/C/DNeg Vag d/c, odor, irritation, itching HAILEY AYALA NP [address], [place], [address], [facility] 04/22/2025 13:32:42 05/03/2025 text/html This patient is a 34-year-old female presents for heavy vaginal bleeding. She has longstanding very heavy bleeding. Her menses are regular. However, they require double protection. Patient has accidents, getting blood on her bedding and clothing. Is affected work. She changes a pad or tampon every hour. She leaks blood around the pad and tampon. This bleeding has a profound impact on her quality of life and her activities of daily living. Patient also presented for ultrasound findings. She has 2 lesions on the right ovary. One is a hyperechoic area with vascularity. Mother is a hyperechoic area with no vascularity. It is smaller. We discussed these findings and reviewed the images together. We talked about her pain. Patient has pelvic pain she has right-sided pain that is intermittent wax and wanes. It is severe at times. Nothing is palliative and nothing is provocative. We discussed treatment options in detail. We discussed medical and surgical options. The patient would like definitive surgical treatment with removal of the right ovary. We agreed to robotic assisted hysterectomy with bilateral salpingectomy and right oophorectomy. The patient understands the procedure. The procedure was described to the patient in great detail. the patient also understands the risks. The risks were also explained in detail. She understands that injuries May occur during surgery. She understands these injuries can result in hospitalization, more surgery, and severe illness. She understands there is risk of hemorrhage and infection. I spent over 30 minutes on her care in total. Parveen Marley MD [address], [place], [address], [facility] 05/03/2025 15:20:20 OBGyn Episode Ob Episode Information Episode Created Date Number of Fetuses Patient Bloodtype Patient rh Status Prepregnancy Weight lbs Domestic Partner Domestic Partner Phone Father Name Benzene Operator Status 04/22/20 25 1 CLOSED Fetus Data First Name Last Name Admitted to NICU Weight (g) Sex Living Outcome Pediatric Complications Fetus ID Race Codes Race Delivery Type 3628.73 6 M Full Term [id number] Vaginal Delivery Earle Calculation Initial Earle Date Initial Exam Date Initial Exam Provider Initial Ultrasound Date Last Menstrual Period Date Ultra Sound Weeks Gestation 0 Eighteen To Twenty Week Earle Update Ultra Sound Date Fundal Height At Umbil Quickening Date Ultra Sound Latest Weeks Gestation Final Earle Confirmed By Final Earle Confirmed Date Final Earle Date Ultra Sound Latest Days Gestation 0 0 Menstrual History Last Menstrual Date Menses Monthly On Bcp Conception Prior Menses Frequency Hcg Plus Date Menarche Onset Age Delivery Information Delivery Date Delivery Type Labor Anesthesia Weeks Gestation Incision Type Labor Labor Length Hrs Delivered By Post Complications Tubal Sterilization Discharge Date Comments 1 38 Discharge Information Feeding Method Contraceptive Method Maternal HG B and HCT Levels Ob Episode Information Episode Created Date Number of Fetuses Patient Bloodtype Patient rh Status Prepregnancy Weight lbs Domestic Partner Domestic Partner Phone Father Name Benzene Operator Status 04/22/20 1 CLOSED Fetus Data First Name Last Name Admitted to NICU Weight (g) Sex Living Outcome Pediatric Complications Fetus ID Race Codes Race Delivery Type 2352.78 1704 F Prematur [place] [id number] Vaginal Delivery Earle Calculation Initial Earle Date Initial Exam Date Initial Exam Provider Initial Ultrasound Date Last Menstrual Period Date Ultra Sound Weeks Gestation 0 Eighteen To Twenty Week Earle Update Ultra Sound Date Fundal Height At Umbil Quickening Date Ultra Sound Latest Weeks Gestation Final Earle Confirmed By Final Earle Confirmed Date Final Earle Date Ultra Sound Latest Days Gestation 0 0 Menstrual History Last Menstrual Date Menses Monthly On Bcp Conception Prior Menses Frequency Hcg Plus Date Menarche Onset Age Delivery Information Delivery Date Delivery Type Labor Anesthesia Weeks Gestation Incision Type Labor Labor Length Hrs Delivered By Post Complications Tubal Sterilization Discharge Date Comments 8 36 Discharge Information Feeding Method Contraceptive Method Maternal HG B and HCT Levels Ob Episode Information Episode Created Date Number of Fetuses Patient Bloodtype Patient rh Status Prepregnancy Weight lbs Domestic Partner Domestic Partner Phone Father Name Benzene Operator Status 04/22/20 25 1 CLOSED Fetus Data First Name Last Name Admitted to NICU Weight (g) Sex Living Outcome Pediatric Complications Fetus ID Race Codes Race Delivery Type , Spontane ous [id number] Earle Calculation Initial Earle Date Initial Exam Date Initial Exam Provider Initial Ultrasound Date Last Menstrual Period Date Ultra Sound Weeks Gestation 0 Eighteen To Twenty Week Earle Update Ultra Sound Date Fundal Height At Umbil Quickening Date Ultra Sound Latest Weeks Gestation Final Earle Confirmed By Final Earle Confirmed Date Final Earle Date Ultra Sound Latest Days Gestation 0 0 Menstrual History Last Menstrual Date Menses Monthly On Bcp Conception Prior Menses Frequency Hcg Plus Date Menarche Onset Age Delivery Information Delivery Date Delivery Type Labor Anesthesia Weeks Gestation Incision Type Labor Labor Length Hrs Delivered By Post Complications Tubal Sterilization Discharge Date Comments 9 Discharge Information Feeding Method Contraceptive Method Maternal HG B and HCT Levels Ob Episode Information Episode Created Date Number of Fetuses Patient Bloodtype Patient rh Status Prepregnancy Weight lbs Domestic Partner Domestic Partner Phone Father Name Benzene Operator Status 04/22/20 25 1 CLOSED Fetus Data First Name Last Name Admitted to NICU Weight (g) Sex Living Outcome Pediatric Complications Fetus ID Race Codes Race Delivery Type 3628.73 6 F Prematur e [id number] Vaginal Delivery Earle Calculation Initial Earle Date Initial Exam Date Initial Exam Provider Initial Ultrasound Date Last Menstrual Period Date Ultra Sound Weeks Gestation 0 Eighteen To Twenty Week Earle Update Ultra Sound Date Fundal Height At Umbil Quickening Date Ultra Sound Latest Weeks Gestation Final Earle Confirmed By Final Earle Confirmed Date Final Earle Date Ultra Sound Latest Days Gestation 0 0 Menstrual History Last Menstrual Date Menses Monthly On Bcp Conception Prior Menses Frequency Hcg Plus Date Menarche Onset Age Delivery Information Delivery Date Delivery Type Labor Anesthesia Weeks Gestation Incision Type Labor Labor Length Hrs Delivered By Post Complications Tubal Sterilization Discharge Date Comments 9 35 Discharge Information Feeding Method Contraceptive Method Maternal HG B and HCT Levels Ob Episode Information Episode Created Date Number of Fetuses Patient Bloodtype Patient rh Status Prepregnancy Weight lbs Domestic Partner Domestic Partner Phone Father Name Benzene Operator Status 04/22/20 25 1 CLOSED Fetus Data First Name Last Name Admitted to NICU Weight (g) Sex Living Outcome Pediatric Complications Fetus ID Race Codes Race Delivery Type 3628.73 6 F Full Term [id number] Vaginal Delivery Earle Calculation Initial Earle Date Initial Exam Date Initial Exam Provider Initial Ultrasound Date Last Menstrual Period Date Ultra Sound Weeks Gestation 0 Eighteen To Twenty Week Earle Update Ultra Sound Date Fundal Height At Umbil Quickening Date Ultra Sound Latest Weeks Gestation Final Earle Confirmed By Final Earle Confirmed Date Final Earle Date Ultra Sound Latest Days Gestation 0 0 Menstrual History Last Menstrual Date Menses Monthly On Bcp Conception Prior Menses Frequency Hcg Plus Date Menarche Onset Age Delivery Information Delivery Date Delivery Type Labor Anesthesia Weeks Gestation Incision Type Labor Labor Length Hrs Delivered By Post Complications Tubal Sterilization Discharge Date Comments 2 38 Discharge Information Feeding Method Contraceptive Method Maternal HG B and HCT Levels
--- OUTSIDE RECORDS SUMMARY | 2025-05-25 14:05 | XMS_ITS | Clinical Summary ---
Author Organization [address] - [address] 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
== END 2025-05-25 11:56 | disposition home or self-care (01) ==
LOC: ANHSURGERY 12:01
PROVIDERS: PCP Family Medicine; Visit Provider Obstetrics & Gynecology
DX: N92.6 Irregular menstruation, unspecified (principal); R10.20 Pelvic and perineal pain unspecified side; I10 Essential (primary) hypertension; Z01.818 Encounter for other preprocedural examination
CPT/HCPCS: 36415; 80053; 86850; 86900; 86901; 93005

== ENCOUNTER 2025-06-04 01:30 | Day surgery (SDC) | payer BC, SELFPAY ==
[2025-05-20 09:31] VITALS: BMI 34.0
--- NOTE | 2025-05-20 09:33 | PC.NURSE ---
[facility] has started construction of its new state of the art ER which will open Spring 2026. With this, we anticipate parking may be a challenge for some our surgical patients and families. Parking spaces are limited but are available for all Surgical, obstetrics, and ER patients sharing this lot. If you arrive and find you are having a hard time finding a parking space, please note that we understand the challenges, please drive around the hospital and park near Hospital Entrance 1. When you enter this entrance, you can ask a volunteer to direct or take you back to the surgical waiting area to check in. We appreciate everyone?s understanding of these expected challenges while we build for your future. Report to the Outpatient Waiting Room, entrance under the green pavilion located off [address], at time _0600_ on date _[phone]_. Planned Procedure Time: _0730_.? Time changes happen often and if your time is changed the preop area will call you the afternoon before. - You and your visitor will be asked to self-screen and do not enter if you have any COVID symptoms. Please call surgeon if you need to reschedule. - A mask is optional within the hospital at this time. Patients may have clear liquids (water, carbonated beverages, clear teas, apple juice) until 3 hours prior to surgery with a maximum of 20 ounces. - No food from midnight until time of surgery and no smoking, or chewing tobacco (or any form of nicotine). No chewing gum, candy or mints. No THC morning of surgery. Take only the following medications with a SIP of water on the morning of surgery: ___Labetolol and Paroxetine____ DO NOT STOP ANY OF YOUR OTHER PRESCRIPTION MEDICATIONS PRIOR TO SURGERY EXCEPT THE FOLLOWING Hold all vitamins and supplements for 3 days per anesthesiologist. Medications to discontinue per physician Date to take last bsur__[phone]____ Please no make-up, nail slovenian, hairspray, perfume, deodorant, or body powder the day of surgery.? No jewelry (including any body piercings) or valuables the day of surgery, leave them at home.? Please take a shower or bath the night before, or the morning of, surgery with an antibacterial soap.? Wear comfortable, loose fitting clothing.? - Jewelry must be removed prior to entering the operating room.? Rings and piercings that are not removed may be cut off. - The hospital will not accept responsibility for valuables.? - Please leave all valuables, including medications, at home the day of surgery. If you are going home after surgery, a licensed van driver helper must drive you home.? - NO public transportation without another adult if you receive anesthesia. - We recommend that an adult stay with you for 24 hours following discharge. - We also recommend that you do not drive, make important decision, drink alcoholic beverages, or take any drugs that were not prescribed by your health care provider for at least 24 hours after your discharge time. Follow any additional instructions given to you from your surgeon. Telephone instructions given to _Katie___and asked if any additional questions and then verbalized understanding. Patient advised to call surgeon office or pre surgery nurse liaison [phone] if any additional questions.
[2025-06-04] VITALS (11 sets, daily range): BP systolic 113–141; BP diastolic 56–86; PULSE 64–92; RESP 12–20; TEMP 36.4–37.3; O2SAT 94–100; BMI 33.6
--- NOTE | 2025-06-04 06:12 | WPDANESEPPF ---
Anes - Initial Pre Proc Eval Procedure: Operation Date: 06/04/25 07:30 Proposed Procedures p Robotic Assisted Hysterectomy with Bilateral Salpingectomy, Right Oophorectomy - Parveen Marley MD Date/Time: 06/04/25 06:12 Surgeon: Parveen Marley MD Pre Op Diagnosis: menorrhaghia with irregular cycle, rt ovarian mass Patient Data Age: 34 Gender: F Height: 1.57 m Weight: 84.5 kg Allergies Allergy/AdvReac Type Severity Reaction Status Date / Time codeine Allergy Unknown Unknown Verified 05/20/25 09:17 hydrocodone AdvReac Severe Nausea and Verified 05/20/25 09:17 Vomiting Home Medications ?Medication ?Instructions ?Recorded ?Confirmed ?Type docosahexaenoic acid (dha)-epa 120 1 cap PO DAILY 05/10/25 05/20/25 History mg-180 mg capsule (Fish Oil) estradiol 2 mg tablet 2 mg PO DAILY 05/10/25 05/20/25 History multivitamin 1 tablet PO DAILY 05/10/25 05/20/25 History paroxetine HCl 10 mg tablet 10 mg PO DAILY 05/10/25 05/20/25 History labetalol 100 mg tablet 100 mg PO BID #180 tabs 06/01/25 Rx lisinopril 20 mg tablet 20 mg PO QAM #90 tabs 06/01/25 Rx Patient hx anesthesia problems: post op nausea/vomiting Family hx anesthesia problems: none Results Review: All pre-operative results and documents have been reviewed as part of the pre-operative evaluation. [facility] Past Medical History Medical History Left knee pain Anxiety Encounter to establish care with new doctor Obesity History of spontaneous (normal spontaneous vaginal delivery) x4 Hearing loss HTN (hypertension) Surgical History Surgical History History of tubal ligation History of hand surgery History of D&C 04/2009 miscarriage H/O arthroscopic knee surgery Social History Social History Smoking status: Never smoker Smokeless tobacco user: other Second hand tobacco smoke exposure: No Additional smoking assessment comments: Pouches every now and then. Alcohol intake: former Alcohol use details: A year since last drink. Substance use: current Other substance usage details: THC drinks for pain daily Lack of Transportation: No Lack of Food: Never True Current Housing: I Have Housing Concerned About Future Housing: No Difficulty Paying Gas/Electric Bills: No Difficulty Paying for Meds: No Currently Unemployed: No Education: Associate Degree Difficulty w/ Childcare or Family Care: No Living arrangements: with family Gender identity (if verbalized by the patient): Female Spiritual care concerns: No Anes - Eval Final PreProcedure Day of Procedure 06/04/25 06:12 Patient weight: obese Heart: regular rate and rhythm Lungs: decreased breath sounds Airway: Mallampati scale class II Neurological: alert and oriented Last oral intake: >/= 8 hours ASA classification: III Emergent: no Anesthetic plan: proceed Anesthesia type and monitoring: general ETT and standard monitoring Results Review: All pre-operative results and documents have been reviewed as part of the pre-operative evaluation. Informed Consent: The patient's anesthetic plan and its attendant risks and benefits were discussed with the patient/family/POA. Questions were solicited and answers provided to the satisfaction of the patient/family/POA.
[2025-06-04] MEDS: LACTATED RINGERS 1,000 ML 30 ML IV CONT ×2 (06:20→09:55)
[2025-06-04 06:40] LABS: BEDSIDEPREGUCG Negative (Negative)
[2025-06-04] MEDS: ACETAMINOPHEN 500 MG TABLET 1000 MG PO ×3 (06:50→21:05)
[2025-06-04] MEDS: KETOROLAC 15 MG/ML VIAL (*BKC) IV PUSH (06:50)
[2025-06-04] MEDS: SCOPOLAMINE 1 MG PATCH 1 PATCH TRANSDERM (06:55)
[2025-06-04] MEDS: ceFAZolin 2 GM in SODIUM CHLORIDE 0.9% IV 50 ML 100 ML IVPB (07:28)
--- NOTE | 2025-06-04 07:37 | WPDHPUPDATE1 ---
History and Physical Update Update Date/Time: 06/04/25 07:37 History and Physical has been reviewed, including an updated exam of the patient. There are NO changes in the patient's condition. Risks, benefits, and alternatives have been discussed and questions answered. Patient agrees to proceed with procedure.
--- NOTE | 2025-06-04 09:21 | S_PTH ---
PATIENT: Katie Valentin LOC: [facility] U#:[id number] AGE/SX: 34/F ROOM: RE06/04/[address]: Parveen Marley MD : 1990 BED: DIS: 06/05/2025 SPEC #: [id number] RECD: 06/04/25 10:48 STATUS: STEFFEN REQ #: [id number] TALIA: 06/04/25 09:[address]: Parveen Marley DEPT: [facility] Surgical RECD BY: Raquel Mehta ENTERED: 06/04/25 10:49 SP TYPE: Surgical OTHR DR: Elva Sepulveda DO Tissues: A - Uterus Procedures: Hematoxylin and Eosin Stain Gross and Microscopic Level 5
--- NOTE | 2025-06-04 10:06 | P.OP_ITS ---
Procedure Note - Detailed Date of Procedure 06/04/25 Pre-op Diagnosis menorrhaghia with irregular cycle, rt ovarian mass Post-op Diagnosis Same Procedure Performed Robot assisted Total hysterectomy with bilateral salpingectomy and right oophorectomy Surgeon Parveen Marley MD Anesthesia General Indications heavy vaginal bleeding, pelvic pain Findings Endometriosis of the posterior cul-de-sac, marked vascularity it to and from the uterus. Normal-appearing left ovary, grossly appearing normal right ovary, Description of Procedure This patient was taken to the operating room. She was prepped and draped in the dorsal lithotomy position after induction of general anesthesia. The uterine manipulator and Surinder cup were placed. This was done with a speculum and tenaculum. The speculum was placed. The cervix was grasped with a tenaculum. The stay sutures were placed at 3 and 9:00 a.m.. The stay sutures of 0 Vicryl were tied to the appropriately Size scope after it was slipped around the cervix.. The tip of the SERENITY manipulator was placed in the intrauterine cavity. The cup was slid into place around the cervix and into the fornices. It was locked into place. The sutures were then wrapped around the handle and tied under tension. A 8 mm skin incision was made in the left upper quadrant the abdomen. a 5 mm Visiport trocar was inserted into abdominal cavity and pneumoperitoneum was ach ieved. A 8 mm supraumbilical incision was made and a 8 mm trocar was inserted into the intrauterine cavity under direct visualization of the scope. an 8 mm incision was made in the right upper quadrant of the abdomen and an 8 mm robotic trocar was placed the inter uterine cavity under direct visualization the scope. An 11 mm trocar was inserted in the right upper quadrant of the abdomen rectal is a cystoscope after an incision was made there as well. The robot was docked. Electronic Orientation of the robot was performed. Bilateral ureteral lysis was performed. This was done from the pelvic brim down to the uterine artery. This was done with careful dissection using sharp and blunt dissection. The fallopian tubes were removed bilaterally. The mesosalpinx around the fallopian tubes were cauterized transected with LigaSure cautery. This was done in a bilateral fashion from the ovary to the uterine cornua. The fallopian tube was transected at the uterine cornu and amputated. The tube was taken out the left lower quadrant trocar site. In a stepwise fashion along the lateral aspects of the uterus the round ligament and broad ligaments were cauterized transected down to the level of the uterine arteries. A bladder flap was created in the bladder was moved distally to the end of the cervix and over the Surinder cup. The bilateral uterine arteries were cauterized and transected. Colpotomy was then performed. In a circumferential fashion the vagina was transected using unipolar cautery. The incision was made down on the Surinder cup. The uterus and cervix were taken out through the vagina. Infundibulopelvic ligament of the right ovary was cauterized and transected. The Ovarian mesosalpinx was cauterized and transected. The ovaries amputated and taken out through the vagina. A pneumo occluder was placed in the vagina. The vaginal cuff was closed with a 0 V lock suture in a running fashion. The pelvis was irrigated with copious amounts antibiotic irrigation. The ureters were again examined and found to be intact and flowing freely under the uterine arteries into the bladder. The bladder was intact. It was examined directly. Cystoscopy was performed after administration of methylene blue. The cystoscope was inserted. Bladder was distended with fluid. The ureteric meatus was observed bilaterally. Blue fluid was seen to egress bilaterally. The bladder was drained and the cystoscope was withdrawn. The vagina was irrigated with Betadine solution after removal of the Pneumo occluder. the trocars were removed after the robot was undocked. The skin was closed with subacute or Dermabond. The patient was taken to recovery room. She was stable condition. Sponge lap and needle counts were correct x2. Estimated Blood Loss 125 Urine Output 800 Drains Yes Packing No Pathology Yes Complications No immediate complications Condition Stable Disposition Floor
[2025-06-04] MEDS: fentaNYL CITRATE INJ (*CRX) 100 MCG/2 ML VIAL 25 MCG IV PUSH ×8 (10:17→11:20)
--- NOTE | 2025-06-04 11:40 | OBPPTRN ---
Patient transferred to post room #289 via stretcher. Oriented to unit and room + information board updated. Patient verbalizes understanding.
[2025-06-04] MEDS: oxyCODONE HCL (*CRX) 5 MG TAB IR PO (12:12)
[2025-06-04] MEDS: ONDANSETRON INJ 4 MG/2 ML VIAL IV PUSH ×2 (12:38→22:36)
[2025-06-04] MEDS: DEXTROSE 5%/0.45% SOD CHL 1,000 ML 125 ML IV CONT (12:38)
[2025-06-04] MEDS: KETOROLAC 30 MG/ML VIAL (*BKC) IV PUSH ×2 (13:10→21:05)
[2025-06-04] MEDS: SIMETHICONE 80 MG TAB.CHEW PO ×2 (13:10→21:03)
[2025-06-04] MEDS: PROMETHAZINE HCL 25 MG/ML AMPUL 12.5 MG IV PUSH ×2 (14:15→23:30)
[2025-06-04] MEDS: HYDROmorphone HCL INJ (*CRX) 1 MG/ML SYR IV PUSH (16:06)
--- NOTE | 2025-06-04 17:10 | PC.NURSE ---
1415: Order received to give Phenergan 25mg IVP q6h as needed for nausea/vomiting via telephone from Dr. Marley to Nancy Cope RN.
[2025-06-04] MEDS: DOCUSATE SODIUM 100 MG CAPSULE PO (21:03)
[2025-06-04] MEDS: LABETALOL HCL 100 MG TABLET PO (21:03)
--- NOTE | 2025-06-04 22:41 | PM.GYNPNOP ---
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: Procedures Operation Date: 06/04/25 07:30 Actual Procedure Side Surgeon p Robotic Assisted Hysterectomy with Bilateral Salpingectomy, Right Oophorectomy, Cystoscopy Bilateral Parveen Marley MD Postoperative day: 1 Postoperative status: doing well Postoperative plan: see orders Time Spent With Patient Time: Total time spent is greater than 50% in coordination of care (as documented) at patient's floor/unit and/or counseling patient: Time with patient: less than 15 minutes FINANCIAL ACCOUNTING ANALYST- PN:Subj Post-Op Subjective Date/time seen: 06/04/25 22:41 Subjective: patient reports feeling better, patient has no complaints and pain is well controlled Exam Const: General: healthy appearing, comfortable and no acute distress Resp: Auscultation: clear to auscultation bilaterally, no rales, no rhonchi and no wheezes Cardio: Rate: regular rate Heart sounds: no click, no murmurs and no rubs GI: Inspection: non-distended Auscultation: normal bowel sounds Extrem: General: normal to inspection, no pedal edema and no calf tenderness FINANCIAL ACCOUNTING ANALYST - PN: Obj Data Vital Signs Vital Signs: Vital Signs - 24 hr 06/04/25 06:00 06/04/25 09:55 06/04/25 10:10 Temperature 99.1 F 97.5 F L Pulse Rate 72 66 73 Respiratory Rate 18 12 12 Blood Pressure 141/75 H 113/62 130/72 Pulse Oximetry 98 100 100 Oxygen Delivery Room Air Simple Face Mask Simple Face Mask Oxygen Flow Rate 8 8 06/04/25 10:25 06/04/25 10:40 06/04/25 10:55 Temperature Pulse Rate 82 86 80 Respiratory Rate 13 13 12 Blood Pressure 128/69 116/78 113/64 Pulse Oximetry 100 98 98 Oxygen Delivery Simple Face Mask Room Air Room Air Oxygen Flow Rate 8 06/04/25 11:10 06/04/25 12:05 06/04/25 12:30 Temperature 99 F Pulse Rate 64 91 Respiratory Rate 14 16 Blood Pressure 127/71 140/86 Pulse Oximetry 97 94 Oxygen Delivery Room Air Room Air Oxygen Flow Rate 06/04/25 15:50 06/04/25 15:50 06/04/25 19:35 Temperature 97.9 F 97.9 F Pulse Rate 92 92 78 Respiratory Rate 20 20 16 Blood Pressure 141/84 H 116/56 L Pulse Oximetry 96 96 96 Oxygen Delivery Room Air Oxygen Flow Rate 06/04/25 21:03 Temperature Pulse Rate 71 Respiratory Rate Blood Pressure Pulse Oximetry Oxygen Delivery Oxygen Flow Rate Intake/Output Intake/Output: Intake & Output 06/01/25 06/02/25 06/03/25 06/04/25 23:59 23:59 23:59 23:59 Intake Total 1650 Output Total 1600 Balance 50 Meds/Results Medications: Active Medications Generic Name Dose Route Start Last Admin Trade Name Freq PRN Reason Stop Dose Admin Acetaminophen 1,000 mg 06/04/25 12:00 06/04/25 21:05 Acetaminophen 500 Mg Tablet PO 1,000 mg Q6HR NABIL Administration Diphenhydramine HCl 25 mg 06/04/25 15:57 06/04/25 16:05 Diphenhydramine Hcl Inj 50 Mg/Ml Vial IV PUSH 25 mg Q4H PRN Administration Itching Docusate Sodium 100 mg 06/04/25 17:00 06/04/25 21:03 Docusate Sodium 100 Mg Capsule PO 100 mg BID NABIL Administration Estradiol 2 mg 06/05/25 09:00 Estradiol 1 Mg Tablet PO QAM NABIL Hydromorphone HCl 1 mg 06/04/25 15:46 06/04/25 16:06 Hydromorphone Hcl Inj (*Crx) 1 Mg/Ml Syr IV PUSH 1 mg Q3H PRN Administration Pain Rated 7-10 IF NPO Dextrose/Sodium Chloride 1,000 mls @ 125 mls/hr 06/04/25 11:25 06/04/25 12:38 Dextrose 5% Sodium Chloride 0.45% IV CONT 125 mls/hr .Q8H NABIL Administration Ibuprofen 600 mg 06/05/25 06:00 Ibuprofen 600 Mg Tablet PO Q6HR NABIL Ketorolac Tromethamine 30 mg 06/04/25 12:00 06/04/25 21:05 Ketorolac 30 Mg/Ml Vial (*Bkc) IV PUSH 06/05/25 00:01 30 mg Q6HR NABIL Administration Labetalol HCl 100 mg 06/04/25 21:00 06/04/25 21:03 Labetalol Hcl 100 Mg Tablet PO 100 mg Q12HR NABIL Administration Lisinopril 20 mg 06/05/25 09:00 Lisinopril 20 Mg Tablet PO QAM [facility] Multivitamins Therapeutic 1 tablet 06/05/25 09:00 Multivitamins Therapeutic Tab (*Bkc) PO DAILY [facility] Naloxone HCl 0.1 mg 06/04/25 11:25 Naloxone Hcl 0.4 Mg/Ml Vial IV PUSH Q2M PRN Respiratory rate less than 10 Non-Formulary Medication 1 each 06/04/25 11:33 Nonformulary Nutritional Supplement XX 06/05/25 11:32 PRN PRN PROTOCOL Ondansetron HCl 4 mg 06/04/25 11:25 06/04/25 22:36 Ondansetron Inj 4 Mg/2 Ml Vial IV PUSH 4 mg Q6H PRN Administration Nausea And Vomiting Oxycodone HCl 5 mg 06/04/25 11:25 06/04/25 12:12 Oxycodone Hcl (*Crx) 5 Mg Tab Ir PO 5 mg Q4H PRN Administration Pain Rated 4-6 Oxycodone HCl 10 mg 06/04/25 11: Oxycodone Hcl (*Crx) 5 Mg Tab Ir PO Q6H PRN Pain Rated 7-10 Paroxetine HCl 10 mg 06/05/25 09:00 Paroxetine 10 Mg Tablet PO DAILY [facility] Promethazine HCl 12.5 mg 06/04/25 14:15 06/04/25 14:15 Promethazine Hcl 25 Mg/Ml Ampul IV PUSH 12.5 mg Q4H PRN Administration Nausea And Vomiting Simethicone 80 mg 06/04/25 12:00 06/04/25 21:03 Simethicone 80 Mg Tab.Chew PO 80 mg TIDWM NABIL Administration Labs Labs: Laboratory Results - last 24 hr 06/04/25 06:20 POC Urine HCG, Qual Negative
[2025-06-05 00:40] VITALS: BP 138/74; PULSE 88; RESP 20; TEMP 36.9; O2SAT 100
[2025-06-05] MEDS: KETOROLAC 30 MG/ML VIAL (*BKC) IV PUSH (03:58)
[2025-06-05] MEDS: ONDANSETRON INJ 4 MG/2 ML VIAL IV PUSH (04:07)
[2025-06-05] MEDS: FAMOTIDINE 20 MG/2 ML VIAL IV PUSH (04:18)
[2025-06-05] MEDS: SCOPOLAMINE 1 MG PATCH 1 PATCH TRANSDERM (04:18)
[2025-06-05 05:30] VITALS: BP 134/73; PULSE 70; RESP 20; TEMP 37.2; O2SAT 99
[2025-06-05] MEDS: PROMETHAZINE HCL 25 MG/ML AMPUL 12.5 MG IV PUSH (08:50)
[2025-06-05 09:00] VITALS: BP 150/78; PULSE 77; RESP 20; TEMP 37; O2SAT 100
[2025-06-05] MEDS: ONDANSETRON HCL ODT 4 MG TABLET 8 MG PO (10:25)
--- NOTE | 2025-06-05 18:57 | PC.NURSE ---
Pt continued to have vomiting/dry heaving this a.m. DC orders in to go home on Zofran 8mg Q8hrs PRN, order changed, pt tolerated and dc'd this afternoon. Discharge instructions reviewed with pt. Pt aware and did not take home meds this am due to dry heaving/vomiting.
== END 2025-06-05 13:15 | disposition home or self-care (01) ==
LOC: ANHSURGERY 07:03 → ANHOB2 11:31
PROVIDERS: PCP Family Medicine; Visit Provider Obstetrics & Gynecology
PROC: (CPT 58571; principal; 2025-06-04 07:30)
DX: N92.1 Excessive and frequent menstruation with irregular cycle (principal); N80.329 Endometriosis of the posterior cul-de-sac, unspecified depth; N94.6 Dysmenorrhea, unspecified; R10.20 Pelvic and perineal pain unspecified side; F12.90 Cannabis use, unspecified, uncomplicated; E66.9 Obesity, unspecified; Z68.33 Body mass index [BMI] 33.0-33.9, adult
CPT/HCPCS: 58571; S2900; 88307; 99199; J0690; A9270; J1100; J1171; J1200; J1885; J2003; J2250; J2405; J2550; J2704; J3010; J7030; J7120; Q9968

== ENCOUNTER 2025-07-19 13:56 | Outpatient (CLI) | payer BC, SELFPAY ==
--- NOTE | ~2025-07-19 | CT_ITS ---
EXAMINATION: CT abdomen pelvis w con DATE: 07/19/2025 14:21 INDICATION: Lower abdomen pain. Status post hysterectomy. TECHNIQUE: Computed tomography (CT) of the abdomen and pelvis was performed with 100 cc Omnipaque 350 intravenous contrast. The dose-length product was 688.35 mGy-cm. Automated exposure control and iterative reconstruction technique were employed. COMPARISON: CT dated 09/17/2022. FINDINGS: Lung bases unremarkable. No significant pleural or pericardial effusion. Heart size normal. Fatty infiltration of the liver. The spleen, pancreas, adrenal glands and kidneys are unremarkable. Gallbladder is present. No significant vascular abnormality. No lymphadenopathy. Small fat-containing umbilical hernia. No free air. No abnormal pelvic masses or fluid collections. Status post hysterectomy. Nonobstructive bowel gas pattern. Colonic diverticulosis without evidence for diverticulitis. Small no acute osseous abnormality. IMPRESSION: 1. No acute abdominal abnormality. Reviewed, dictated and finalized at location O. NESS ADMINISTRATOR
--- OUTSIDE RECORDS SUMMARY | 2025-07-19 14:08 | XMS_ITS | Clinical Summary ---
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
[2025-07-19 14:18] LABS: Estimated Glomerular Filt Rate > 60
== END 2025-07-19 13:57 | disposition home or self-care (01) ==
LOC: ANHIMG 13:58
PROVIDERS: PCP Family Medicine; Visit Provider Obstetrics & Gynecology
DX: R10.30 Lower abdominal pain, unspecified (principal)
CPT/HCPCS: 74177; Q9967